=== PATIENT | female | born 1950 | race Caucasian/White ===

== ENCOUNTER → 2023-09-03 13:50 | Outpatient (REF) | payer MEDICARE, SELFPAY | LOC: WDC 13:50 | PROVIDERS: ATTENDING PHYSICIAN Obstetrics & Gynecology; FAMILY PHYSICIAN Internal Medicine | DX: R92.8 Other abnormal and inconclusive findings on diagnostic imaging of breast (principal) | CPT/HCPCS: 76642 ==

== ENCOUNTER → 2023-11-09 07:54 | Outpatient (REF) | payer MEDICARE, SELFPAY ==
--- NOTE | 2023-11-09 13:40 | OID.BR.INTR ---
[facility]ANCED Breast Navigator - Initial
- -
Date of Contact: 11/09/23
Met with patient. Patient given written information on navigator services available at [facility]. Will follow up as needed per protocol.
== END ==
LOC: WDC 07:54
PROVIDERS: ATTENDING PHYSICIAN Surgery
DX: N63.23 Unspecified lump in the left breast, lower outer quadrant (principal)
CPT/HCPCS: 88305; 19083; 77065; A4648

== ENCOUNTER 2023-12-20 15:02 | Emergency (ER) | payer MEDICARE, SELFPAY ==
[2023-12-20 15:09] VITALS: BP 129/80
[2023-12-20 15:27] LABS: % Basophils 0.4 % (0-2); % Eosinophils 2.4 % (0-6); % Immature Granulocytes 0.4 % (0-0.5); % Lymphocytes 21.6 % (20.5-51.1); % Monocytes 5.4 % (1.7-9.3); % Neutrophils 69.8 % (42.2-75.2); Absolute Eosinophils 0.2 10^3/uL (0-0.7); Absolute Monocytes 0.5 10^3/uL (0.1-0.6); Absolute Neutrophils 6.5 10^3/uL (1.4-6.5); Hematocrit 39.9 % (37.0-47.0); Hemoglobin 13.6 g/dL (12.0-16.0); Mean Corp Hgb Conc. 34.1 g/dL (33.0-37.0); Mean Corpuscular Hgb 26.3 pg (27.0-31.0); Mean Platelet Volume 9.5 fL (7.4-10.4); Nucleated Red Blood Cells % 0 %; Platelet Count 352 10^3/uL (130-400); Red Blood Cell Count 5.18 10^6/uL (4.20-5.40); Red Cell Dist. Width 14.4 % (11.5-14.5); White Blood Cell Count 9.4 10^3/uL (4.8-10.8)
[2023-12-20 15:47] LABS: ALT (SGPT) 26 U/L (0-35); AST (SGOT) 26 U/L (14-36); Albumin 4.6 g/dl (3.5-5.0); Alkaline Phosphatase 120 U/L (38-126); Blood Urea Nitrogen 24 mg/dl (7-17); Calcium 9.3 mg/dl (8.4-10.2); Carbon Dioxide 22 mmol/L (22-30); Chloride 105 mmol/L (98-107); Glucose 142 mg/dl (70-99); Potassium 4.2 mmol/L (3.5-5.1); Sodium 137 mmol/L (135-145); Total Bilirubin 0.5 mg/dl (0.2-1.3); Total Protein 7.7 g/dl (6.3-8.2); eGFR > 60.00
[2023-12-20 15:52] LABS: Troponin I < 0.012 ng/ml
[2023-12-20 16:18] VITALS: BP 111/97
[2023-12-20 16:19] LABS: Lipase 328 U/L (23-300)
[2023-12-20 17:00] VITALS: BP 122/81; BMI 25.6
--- NOTE | 2023-12-20 17:54 | ED.GENMED ---
History of Present Illness
General
Chief Complaint: Chest Pain
Source: patient
Exam Limitations: none
Time Seen by Provider: 12/20/23 17:36
History of Present Illness
History of Present Illness:
72-year-old female with history of reflux, hypertension presents with onset of severe sharp pain in the center of her chest that radiates to her neck and her scapula and down her arms. This happened in 3 different episodes earlier today. She was
diaphoretic during this and short of breath. Currently she states the pain is nearly resolved and she is just tired. No fever. No recent travel or surgery. No leg swelling or calf pain. No vomiting. No other complaints at this time
Past History
Past History
ED Past Medical History: Hypercholesterolemia
ED Past Surgical History: and Other (Partial thyroidectomy)
Patient has exhibited threatening behavior?: No
PSI?: No
Social History
Tobacco: Non-smoker
Alcohol: None
Drug: None
Personal:
Living: with family
Employment: Employed
Phy Exam
Physical Exam
Physical Exam:
General: Well-appearing female no acute respiratory distress
HEENT: Normocephalic atraumatic
Heart: Regular rate and rhythm no murmurs
Lungs: Clear no wheeze
Vascular: 2+ symmetric radial pulses bilaterally
Neurologic: Good sensation upper extremities.
Scores
Heart Score for Chest Pain Patients
STEMI patient?: No
History: Slightly or Non-Suspicious
ECG: Normal
Age: >/= 65 years
Risk Factors: 1 or 2 Risk Factors
Troponin: </= Normal Limit
Heart Score for Chest Pain Patients: 3
Heart Score Risk: 2.5% MACE over next 6 weeks
Course
Orders/Labs/Results
Orders:
Orders
12/20/23 15:05
EKG [Electrocardiogram (*1)] Urgent
Reason for Study: Chest Pain
EKG- Treatment ONCE
12/20/23 15:19
CMP [Comprehensive Metabolic Panel] Urgent
Complete Blood Count/With Diff Urgent
Lipase Urgent
Troponin I Urgent
12/20/23 17:51
CT Chest Angio W/wo Iv Contras Urgent
Comment:
Reason For Exam: chest and scapular pain, eval for dissection
12/20/23 17:56
Troponin I Urgent
Abnormal Lab Results
12/20/23
15:19
MCV 77.0 L fL
(81.0-99.0)
MCH 26.3 L pg
(27.0-31.0)
BUN 24 H mg/dl
(7-17)
Glucose 142 H mg/dl
(70-99)
Lipase 328 H U/L
(23-300)
12/20/23 15:19
12/20/23 15:19
Vital Signs
Initial and Last Documented VS:
Initial Vital Signs
Temp Pulse Resp BP Pulse Ox
97.8 F 76 16 129/80 100
12/20/23 15:09 12/20/23 15:09 12/20/23 15:09 12/20/23 15:09 12/20/23 15:09
Last Documented Vital Signs
Temp Pulse Resp BP Pulse Ox
97.8 F 74 17 122/81 99
12/20/23 15:09 12/20/23 17:45 12/20/23 17:45 12/20/23 17:00 12/20/23 17:45
MDM/Problems Addressed
Differential Diagnosis Includes:
Chest pain with scapular plane and arm pain. Patient has a history of reflux. Considers reflux as a source of discomfort however also need to consider dissection given severity of pain. Will check for cardiac events as well with troponin.
Patient's vital signs are currently stable. Her symptoms are improved. CT angio of the chest is pending
*Critical Care Note
Total Time (30-74mins, 75-104mins- exclusive of procedures): Not Applicable
Update Note
Update Note:
CT angio of chest negative for acute finding. Repeat troponin also undetectable. Patient reassured. Do not suspect ACS PE or dissection. Question possible reflux as a source of her discomfort. Recommend she follow-up with family doctor and GI.
Stable for discharge
ED Attending Note
-
Portions of this chart may have been created with voice recognition software.� Occasional wrong word or��sound alike� substitutions may have occurred due to the inherent limitations of voice recognition software.
Discharge Plan
Departure
Patient Disposition: Home (Routine Discharge)
Date of Disposition: 12/20/23
Time of Disposition: :24
Patient with high blood pressure during this ER visit?: No
Discharge Problem:
Chest pain
Instructions: Acid Reflux and GERD in Adults (DC)
Prescriptions:
No Action
No Current Medications
0
Referrals:
Silvestre Kay MD [Family Provider] -
Activity Restrictions/Additional Instructions:
Please return here for worsening symptoms otherwise follow-up with your treating physicians.
Interventions
Interventions:
*Risk Screen - Suicide Last Done: 12/20/23 17:00
*General Assessment Last Done: 12/20/23 15:09
*Neglect/Abuse Screening Last Done: 12/20/23 17:00
ED- Fall Risk Assessment Last Done: 12/20/23 17:00
*ED COVID-19 Vaccine History Last Done: 12/20/23 15:09
ED- Cardiac Assessment Last Done: 12/20/23 17:00
Discharge Date and Time
Print Language: BRITISH
[2023-12-20 18:25] LABS: Troponin I < 0.012 ng/ml
[2023-12-20 19:33] VITALS: BP 127/82
== END 2023-12-20 19:37 | disposition home or self-care (01) ==
LOC: EMR 15:02
PROVIDERS: Emergency Medicine; Physician Assistant; EMERGENCY PHYSICIAN Emergency Medicine; FAMILY PHYSICIAN Family Medicine
DX: R07.89 Other chest pain (principal); M54.2 Cervicalgia; R06.02 Shortness of breath; R53.83 Other fatigue; M25.519 Pain in unspecified shoulder; I10 Essential (primary) hypertension; E78.00 Pure hypercholesterolemia, unspecified; E89.0 Postprocedural hypothyroidism; K21.9 Gastro-esophageal reflux disease without esophagitis; Z88.8 Allergy status to other drugs, medicaments and biological substances; Z88.1 Allergy status to other antibiotic agents; Z91.040 Latex allergy status
CPT/HCPCS: 99285; 71275; 80053; 83690; 84484; 85025; 93005; Q9967

== ENCOUNTER → 2024-01-05 09:16 | Outpatient (REF) | payer MEDICARE, SELFPAY | LOC: RAD 09:16 | PROVIDERS: ATTENDING PHYSICIAN Family Medicine | DX: R07.89 Other chest pain (principal); K21.9 Gastro-esophageal reflux disease without esophagitis | CPT/HCPCS: 74176 ==

== ENCOUNTER → 2024-01-07 10:15 | Outpatient (REF) | payer MEDICARE, SELFPAY | LOC: RAD 10:15 | PROVIDERS: ATTENDING PHYSICIAN Internal Medicine; FAMILY PHYSICIAN Family Medicine; REFERRING PHYSICIAN Internal Medicine Gastroenterology | DX: K44.9 Diaphragmatic hernia without obstruction or gangrene (principal) | CPT/HCPCS: 74221 ==

== ENCOUNTER → 2024-01-25 08:08 | Outpatient (REF) | payer MEDICARE, SELFPAY | LOC: WDC 08:08 | PROVIDERS: ATTENDING PHYSICIAN Surgery | DX: N63.20 Unspecified lump in the left breast, unspecified quadrant (principal); N63.24 Unspecified lump in the left breast, lower inner quadrant | CPT/HCPCS: 19285; 77065; A4648 ==

== ENCOUNTER → 2024-01-28 07:30 | Outpatient (REF) | payer MEDICARE, SELFPAY | LOC: WDC 07:30 | PROVIDERS: ATTENDING PHYSICIAN Surgery | DX: N63.20 Unspecified lump in the left breast, unspecified quadrant (principal) | CPT/HCPCS: 88305; 88307; 76098 ==

== ENCOUNTER 2024-01-29 00:18 | Observation (INO) | payer MEDICARE, SELFPAY ==
[2024-01-28 20:22] VITALS: BMI 25.1
[2024-01-28 20:25] VITALS: BP 129/86
[2024-01-28 20:27] VITALS: BP 129/86
[2024-01-28 20:56] LABS: % Basophils 0.1 % (0-2); % Immature Granulocytes 0.6 % (0-0.5); % Lymphocytes 4.8 % (20.5-51.1); % Monocytes 3.9 % (1.7-9.3); % Neutrophils 90.6 % (42.2-75.2); Absolute Immature Granulocytes 0.1 10^3/uL (0-0.05); Absolute Lymphocytes 0.9 10^3/uL (1.2-3.4); Absolute Monocytes 0.7 10^3/uL (0.1-0.6); Absolute Neutrophils 16.5 10^3/uL (1.4-6.5); Hematocrit 36.9 % (37.0-47.0); Hemoglobin 12.4 g/dL (12.0-16.0); Mean Corp Hgb Conc. 33.6 g/dL (33.0-37.0); Mean Corpuscular Hgb 26.4 pg (27.0-31.0); Mean Corpuscular Volume 78.7 fL (81.0-99.0); Mean Platelet Volume 9.7 fL (7.4-10.4); Nucleated Red Blood Cells % 0 %; Platelet Count 300 10^3/uL (130-400); Red Blood Cell Count 4.69 10^6/uL (4.20-5.40); Red Cell Dist. Width 15.4 % (11.5-14.5); White Blood Cell Count 18.2 10^3/uL (4.8-10.8)
[2024-01-28 21:00] VITALS: BP 112/65
[2024-01-28 21:10] LABS: ALT (SGPT) 21 U/L (0-35); AST (SGOT) 27 U/L (14-36); Alkaline Phosphatase 95 U/L (38-126); Blood Urea Nitrogen 14 mg/dl (7-17); Calcium 8.9 mg/dl (8.4-10.2); Carbon Dioxide 17 mmol/L (22-30); Chloride 116 mmol/L (98-107); Estimated Creatinine Clearance 45 ml/min; Glucose 139 mg/dl (70-99); Potassium 4.4 mmol/L (3.5-5.1); Sodium 144 mmol/L (135-145); Total Bilirubin 0.4 mg/dl (0.2-1.3); Total Protein 6.7 g/dl (6.3-8.2); eGFR > 60.00
[2024-01-28 21:14] LABS: Creatine Phosphokinase 258 U/L (30-135)
--- NOTE | 2024-01-28 21:14 | ED.GENMED ---
History of Present Illness
<Vicky Gutierrez MD, Resident - Last Filed: 01/28/24 21:20>
General
Chief Complaint: Dizziness
Time Seen by Provider: 01/28/24 20:45
History of Present Illness
History of Present Illness:
73 year old female who was admitted to ER today after she had a face /neck lifting surgery this morning due feeling dizzy and nauseous. The patient has a PMH of HT, HL, ADRIENNE. The patient is awake and alert and no any neurologic deficits on her
examination. Patient reports that she had many surgeries in the past and she does not tolerate anesthesia medications well. She endorses having more dizziness/nausea when she turns her neck. The patient denies chest pain and shortness of breath.
Past History
<Vicky Gutierrez MD, Resident - Last Filed: 01/28/24 21:20>
Past History
ED Past Medical History: Hypercholesterolemia
ED Past Surgical History: and Other (Partial thyroidectomy)
Patient has exhibited threatening behavior?: No
PSI?: No
Social History
Tobacco: Non-smoker
Alcohol: None
Drug: None
Personal:
Living: with family
Employment: Employed
Phy Exam
<Vicky Gutierrez MD, Resident - Last Filed: 01/28/24 21:20>
General Physical Exam
General Presentation: well appearing and moderate distress
General Skin: warm and dry
General Mental: alert
General Hydration: appears well hydrated
ENT Exam
Additional ENT: The patient has bandages around her neck due her face/neck lifting surgery.
Eye Exam
Eye Exam: EOMI and conjunctiva normal
Cardiovascular Exam
Cardiovascular Exam: regular rate/rhythm, no edema, no gallop and no murmur
Pulmonary Exam
Pulmonary Exam: lungs clear, no respiratory distress, no rales, no crackles, no rhonchi, no wheezing and no cough
Gastrointestinal Exam
Gastrointestinal Exam: soft
Course
<Vicky Gutierrez MD, Resident - Last Filed: 01/28/24 21:20>
Orders/Labs/Results
Orders:
Orders
01/28/24 20:26
Electrocardiogram (*1) Urgent
Reason for Study: Vertigo / Dizzy
EKG- Treatment ONCE
01/28/24 20:40
CMP [Comprehensive Metabolic Panel] Urgent
Complete Blood Count/With Diff Urgent
Creatine Phosphokinase Urgent
Comment: ADD ON
01/28/24 20:58
Add On- LAB Urgent
Tests Added?: cpk
01/28/24 21:13
Ondansetron Injectable [Zofran] 4 mg IV NOW STA
01/28/24 22:15
0.9% Sodium Chloride 1000 ml [Nss] 1,000 ml IV 100 mls/hr
Abnormal Lab Results
01/28/24
20:40
WBC 18.2 H 10^3/uL
(4.8-10.8)
Hct 36.9 L %
(37.0-47.0)
MCV 78.7 L fL
(81.0-99.0)
MCH 26.4 L pg
(27.0-31.0)
RDW 15.4 H %
(11.5-14.5)
Abs Immat Gran (auto) 0.1 H 10^3/uL
(0-0.05)
Absolute Neuts (auto) 16.5 H 10^3/uL
(1.4-6.5)
Absolute Lymphs (auto) 0.9 L 10^3/uL
(1.2-3.4)
Absolute Monos (auto) 0.7 H 10^3/uL
(0.1-0.6)
Immature Gran % 0.6 H %
(0-0.5)
Neutrophils % 90.6 H %
(42.2-75.2)
Lymphocytes % 4.8 L %
(20.5-51.1)
Chloride 116 H mmol/L
(98-107)
Carbon Dioxide 17 L mmol/L
(22-30)
Glucose 139 H mg/dl
(70-99)
Creatine Kinase 258 H U/L
(30-135)
01/28/24 20:40
01/28/24 20:40
Vital Signs
Initial and Last Documented VS:
Initial Vital Signs
Pulse Resp
91 32
01/28/24 20:23 01/28/24 20:23
Last Documented Vital Signs
Temp Pulse Resp BP Pulse Ox
98.1 F 89 14 112/65 99
01/28/24 20:27 01/28/24 21:00 01/28/24 21:00 01/28/24 21:00 01/28/24 20:27
<Edmond Hall, DO - Last Filed: 01/28/24 22:22>
Orders/Labs/Results
Orders:
Orders
01/28/24 20:26
Electrocardiogram (*1) Urgent
Reason for Study: Vertigo / Dizzy
EKG- Treatment ONCE
01/28/24 20:40
CMP [Comprehensive Metabolic Panel] Urgent
Complete Blood Count/With Diff Urgent
Creatine Phosphokinase Urgent
Comment: ADD ON
01/28/24 20:58
Add On- LAB Urgent
Tests Added?: cpk
01/28/24 21:13
Ondansetron Injectable [Zofran] 4 mg IV NOW STA
01/28/24 22:15
0.9% Sodium Chloride 1000 ml [Nss] 1,000 ml IV 100 mls/hr
Abnormal Lab Results
01/28/24
20:40
WBC 18.2 H 10^3/uL
(4.8-10.8)
Hct 36.9 L %
(37.0-47.0)
MCV 78.7 L fL
(81.0-99.0)
MCH 26.4 L pg
(27.0-31.0)
RDW 15.4 H %
(11.5-14.5)
Abs Immat Gran (auto) 0.1 H 10^3/uL
(0-0.05)
Absolute Neuts (auto) 16.5 H 10^3/uL
(1.4-6.5)
Absolute Lymphs (auto) 0.9 L 10^3/uL
(1.2-3.4)
Absolute Monos (auto) 0.7 H 10^3/uL
(0.1-0.6)
Immature Gran % 0.6 H %
(0-0.5)
Neutrophils % 90.6 H %
(42.2-75.2)
Lymphocytes % 4.8 L %
(20.5-51.1)
Chloride 116 H mmol/L
(98-107)
Carbon Dioxide 17 L mmol/L
(22-30)
Glucose 139 H mg/dl
(70-99)
Creatine Kinase 258 H U/L
(30-135)
01/28/24 20:40
01/28/24 20:40
Vital Signs
Initial and Last Documented VS:
Initial Vital Signs
Pulse Resp
91 32
01/28/24 20:23 01/28/24 20:23
Last Documented Vital Signs
Temp Pulse Resp BP Pulse Ox
98.1 F 89 14 112/65 99
01/28/24 20:27 01/28/24 21:00 01/28/24 21:00 01/28/24 21:00 01/28/24 20:27
<Edmond Hall DO - Last Filed: 01/28/24 22:22>
MDM/Problems Addressed
Differential Diagnosis Includes:
Effects of anesthesia, electrolyte abnormality, deconditioning no chest pain or shortness of breath no arrhythmias
MDM/Problems Addressed:
Weakness dizzy
Chronic conditions affecting care: HTN
Acute Exacerbation and/or Progression of Chronic Illness: HTN
<Edmond Hall DO - Last Filed: 01/28/24 22:22>
*Pulse Oximetry
Patient hypoxic: no
*EKG
Interpreted by ED Provider?: Yes
Interpretation: abnormal
Comparison EKG: no comparison EKG present
Heart Rate: 78
Rhythm: sinus
Ischemia: non-specific ST changes
*Broadcast Checker Interpretation
Rate: normal
Interpretation: normal
Heart Rate: 78
Rhythm: sinus
*Critical Care Note
Total Time (30-74mins, 75-104mins- exclusive of procedures): Not Applicable
<Edmond Hall DO - Last Filed: 01/28/24 22:22>
Update Note
Update Note:
Update, reviewed with RN patient have a hard time ambulating, she apparently lives alone, I did speak with the treating surgeon, will ask hospitalist to admit, he will see her in the morning
ED Attending Note
<Vicky Gutierrez MD, Resident - Last Filed: 01/28/24 21:20>
-
Portions of this chart may have been created with voice recognition software.� Occasional wrong word or��sound alike� substitutions may have occurred due to the inherent limitations of voice recognition software.
<Edmond Hall DO - Last Filed: 01/28/24 22:22>
ED Attending Note
Patient seen and examined by attending physician: Yes
I performed a history and physical exam of patient and discussed management with resident, I reviewed resident's note and agree with documented findings and plan of care.: Yes
ED Attending Note:
73-year-old female status post cosmetic surgery apparently had a prolonged or time recovery room surgery center felt dizzy trouble walking she suffers from vertigo chronically, here she is awake alert and oriented stable vital signs, apparently
received 5 L of saline during the surgery, will give a dose of Zofran here keep on monitoring tech see how she is feeling, will reach out to her treating surgeon
Discharge Plan
Departure
Prescriptions:
No Action
lorazepam 0.5 mg Tablet
0.5 mg PO DAILY PRN (Reason: anxiety)
zolpidem [Ambien] 5 mg Tablet
5 mg PO HS
losartan 100 mg Tablet
100 mg PO DAILY
Prozac
spironolactone
Referrals:
Sivlestre Kay MD [Family Provider] -
Interventions
Interventions:
*Risk Screen - Suicide Last Done: 01/28/24 20:27
*General Assessment Last Done: 01/28/24 20:27
*Neglect/Abuse Screening Last Done: 01/28/24 20:27
ED- Fall Risk Assessment Last Done: 01/28/24 20:50
*ED COVID-19 Vaccine History Last Done: 01/28/24 20:27
ED- Neurological Assessment Last Done: 01/28/24 20:50
ED- Cardiac Assessment Last Done: 01/28/24 20:50
ED Swallowing Screen Last Done: 01/28/24 20:50
Discharge Date and Time
Print Language: GHANAIAN
[2024-01-28] MEDS: ZOFRAN 4 MG IV (21:31)
[2024-01-28 22:01] VITALS: BP 134/84
[2024-01-28] MEDS: NSS 1000 IV (22:26)
[2024-01-28 23:00] VITALS: BP 130/83
[2024-01-29] VITALS (13 sets, daily range): BP systolic 116–153; BP diastolic 71–86; PULSE 70–78; BMI 24.9
--- NOTE | 2024-01-29 00:23 | HPS.HSE ---
Family Physician
-
Family Physician: Silvestre Kay
Chief Complaint
-
Dizziness
History of Present Illness
Patient is a 73y F with PMH significant for hypertension who presents to ED from [facility] for evaluation of lethargy and dizziness post-op. Patient underwent cosmetic surgery today with Drs. Singh / Nicho. Following the roughly 8 hour
procedure, patient states that she had some difficulty waking from anesthesia. She also noted some dizziness that occurred with turning of the head. She had no N/V. No chest pain or dyspnea.
Patient was transported to ED for further evaluation. Here in the ED, patient is awake but very weak and unable to stand unassisted. She denies any further dizziness. No other new symptoms / complaints. She feels very fatigued.
Patient states that anesthesia typically 'hits me hard' and she frequently has similar issues post-procedure.
Medical History
Past Medical History
Past Medical History: Reports Other
Additional Past Medical History:
Hypertension
Migraine Headaches
Anxiety / Depression / Insomnia
Past Surgical History: Reports Other
Additional Past Surgical History:
Left Lumpectomy / Bilateral Breast Reduction and Lift / Face Lift (01/28/24)
Bilateral Blepharoplasty
Abdominoplasty / Liposuction
Partial Thyroidectomy (benign mass)
Social History
Tobacco: Non-smoker
Alcohol: None
Drug: None
Family History
Family History: Not pertinent
Allergies / Home Medications
Allergies reflects when Allergies were last updated in [employer].
Home Medications with original date entered in [employer]
Allergy/Medication List:
Allergies
Allergy/AdvReac Type Severity Reaction Status Date / Time
diphenhydramine Allergy Unknown Verified 01/28/24 20:24
[From Benadryl]
hydrochlorothiazide Allergy fainting Verified 01/28/24 20:24
latex Allergy Unknown Verified 01/28/24 20:24
Tetracyclines Allergy Unknown Verified 01/28/24 20:24
Home Medications
lorazepam 0.5 mg tablet 0.5 mg PO DAILY PRN anxiety 01/28/24
losartan 100 mg tablet 100 mg PO DAILY 01/28/24
zolpidem 5 mg tablet (Ambien) 5 mg PO HS 01/28/24
minoxidil 2.5 mg tablet 2.5 mg PO DAILY 01/29/24
omeprazole 40 mg capsule,delayed release 40 mg PO DAILY 01/29/24
sertraline 50 mg tablet 50 mg PO DAILY 01/29/24
trazodone 50 mg tablet 50 mg PO HS 01/29/24
Review of Systems
-
History Source: Patient
A 12 point ROS was completed and negative except as noted: Yes
Constitutional: Reports Fatigue; Denies Fever or Chills
Respiratory: Denies Cough or Trouble Breathing
Cardiac: Denies Chest Pain or Palpitations
Abdomen/GI: Denies Abdominal Pain, Nausea, Vomiting or Diarrhea
: Denies Dysuria or Frequency
Musculoskeletal: Denies Joint Pain or Edema
Neurological: Reports Dizzy, Headache and Weakness
Psych: Denies Depression or Anxiety
Physical Exam
Vital Signs
Vital Signs
Temp Pulse Resp BP Pulse Ox
98.1 F 89 18 131/81 98
01/28/24 20:27 01/29/24 00:00 01/29/24 00:00 01/29/24 00:00 01/29/24 00:00
Physical Exam
General: Other (73y F in no acute distress.)
HEENT: Other (Bulky dressing in place around the head with R sided ASIM in place with scant amount of serosanguinous drainage.)
Respiratory: Other (Decreased bilaterally - otherwise clear. Large binder / supportive garment in place over the breasts. No drains.)
Cardiac: S1/S2 and Regular Rhythm; No Murmur
GI: Soft, Non Tender, Non Distended and Normal Bowel Sounds
Musculoskeletal: No Clubbing, No Cyanosis and No Edema
Neuro: AO x 3
Laboratory Results
-
01/28/24 20:40
01/28/24 20:40
Laboratory Results
Total Bilirubin 0.4 mg/dl (0.2-1.3) 01/28/24 20:40
AST 27 U/L (14-36) 01/28/24 20:40
ALT 21 U/L (0-35) 01/28/24 20:40
Alkaline Phosphatase 95 U/L (38-126) 01/28/24 20:40
Impression/Plan
-
A/P: Patient is a 73y F with PMH significant for HTN who presents to ED complaining of fatigue and dizziness s/p cosmetic surgery this AM.
Fatigue / Dizziness
- Observe overnight for further evaluation.
- Very likely secondary to anesthesia effect from today's procedure(s).
- Monitor on tele overnight with gentle IVFs.
- Avoid sedating meds as able.
- PT / OT evaluations in the AM.
s/p L Lumpectomy, Bilateral Breast Reduction and Lift, Face Lift
- Dr. Torre has been consulted and will eval in the AM.
- Can follow-up with Dr. Singh as an outpatient - unless specific / new issues arise.
Benign Hypertension
- Continue losartan with holding parameters to avoid hypotension.
- Hold minoxidil acutely.
Anxiety / Depression / Insomnia
- Stable. Continue sertraline.
- Hold sleep aides acutely given complaints of fatigue.
DVT Prophylaxis: SCDs
Code Status: Full
--- NOTE | 2024-01-29 02:30 | PTCARENOTE ---
received patient from the ED. AAOx3. Sr on tele 70s. c/o posterior neck pain-requested Tylenol. denies any dizziness at this time. surgical dressings intact. JPx1-serous sanguinous drainage. reviewed plan of care with patient and verbalized
understanding. call carcamo within reach.
[2024-01-29] MEDS: TYLENOL 650 MG PO ×4 (02:48→18:18)
[2024-01-29 06:38] LABS: Hematocrit 34.7 % (37.0-47.0); Hemoglobin 11.7 g/dL (12.0-16.0); Mean Corp Hgb Conc. 33.7 g/dL (33.0-37.0); Mean Corpuscular Hgb 26.4 pg (27.0-31.0); Mean Corpuscular Volume 78.2 fL (81.0-99.0); Mean Platelet Volume 9.8 fL (7.4-10.4); Platelet Count 295 10^3/uL (130-400); Red Blood Cell Count 4.44 10^6/uL (4.20-5.40); Red Cell Dist. Width 15.4 % (11.5-14.5); White Blood Cell Count 16.3 10^3/uL (4.8-10.8)
[2024-01-29 06:49] LABS: Blood Urea Nitrogen 13 mg/dl (7-17); Calcium 9.1 mg/dl (8.4-10.2); Carbon Dioxide 22 mmol/L (22-30); Chloride 112 mmol/L (98-107); Estimated Creatinine Clearance 37 ml/min; Glucose 101 mg/dl (70-99); Potassium 3.6 mmol/L (3.5-5.1); Sodium 142 mmol/L (135-145); eGFR 53.72
[2024-01-29 07:37] LABS: Hepatitis C Antibody Negative (Negative)
[2024-01-29] MEDS: PROTONIX 40 MG PO (07:44)
[2024-01-29] MEDS: COZAAR 100 MG PO (07:44)
--- NOTE | 2024-01-29 12:28 | CM ---
spoke to pt in room, she is prev indep, lives alone in a 2 story home with 2 steps to enter. she denies any dc planning needs or dme's. plan is for dc to home when medically stable. obs letter explained and signed.
--- NOTE | 2024-01-29 12:36 | W.PN.UPDATE ---
Addendum entered and electronically signed by Adelso Justice MD 01/29/24 18:24:
Discussed case with plastic surgeon Dr. Torre. Patient okay for discharge from surgical perspective. Patient was eval by PT and OT. Patient no longer dizzy. Patient be discharged home. Recommended outpatient blood work to monitor creatinine and
WBC.
More than 30 minutes spent in discharge including
Final examination of the patient
Summarizing hospital stay
Instructions for continuing care to all relevant caregivers
Preparation of discharge records, prescriptions, and referral forms
Total time spent (in minutes): 50
Original Note:
Update Note
Progress Note Update
Seen and examined independent of overnight physician. States feeling tired. Denies any lightheaded or dizziness. States wants to work with PT. Planning to drink water and eating breakfast awaiting to see her primary plastic surgeon. Not in much
pain.
General: Other (73y F in no acute distress.)
HEENT: Other (Bulky dressing in place around the head with R sided ASIM in place with scant amount of serosanguinous drainage.)
Respiratory: Other (Decreased bilaterally - otherwise clear. Large binder / supportive garment in place over the breasts. No drains.)
Cardiac: S1/S2 and Regular Rhythm; No Murmur
GI: Soft, Non Tender, Non Distended and Normal Bowel Sounds
Musculoskeletal: No Clubbing, No Cyanosis and No Edema
Neuro: AO x 3
A/P: Patient is a 73y F with PMH significant for HTN who presents to ED complaining of fatigue and dizziness s/p cosmetic surgery this AM.
Fatigue / Dizziness
- Very likely secondary to anesthesia effect from prolonged 8h procedure(s).
- Avoid sedating meds as able.
- PT / OT evaluations pending
s/p L Lumpectomy, Bilateral Breast Reduction and Lift, Face Lift
- Dr. Torre has been consulted -eval pending as with ASIM drain-will defer management to them
- Can follow-up with Dr. Singh as an outpatient
Benign Hypertension
- Continue losartan with holding parameters to avoid hypotension.
- Hold minoxidil acutely.
Anxiety / Depression / Insomnia
- Stable. Continue sertraline.
- Hold sleep aides acutely given complaints of fatigue.
Elevated Creatinine likely 2/2 pre-renal stimulus and prolonged anesthesia
-
Leukocytosis likely secondary to postop stress reaction
-Remains afebrile. Downtrending.
DVT Prophylaxis: SCDs
Code Status: Full
Dispo-pending Dr. Torre evaluation and PT and OT
--- NOTE | 2024-01-29 18:18 | W.PN.PLAS ---
Progress Note
Subjective Data
Pt feels better. Pain controlled with Tylenol. OOb to chair. No longer dizzy.
Subjective: Pain Level and Ambulatory
Objective Data
Vital Signs
Temp Pulse Resp BP Pulse Ox
98.5 F 73 16 147/84 98
01/29/24 16:08 01/29/24 16:06 01/29/24 16:08 01/29/24 16:06 01/29/24 11:15
Intake and Output
01/28/24 01/29/24 01/30/24
06:59 06:59 06:59
Intake Total 500 / 500
Output Total 400 / 400
Balance 100 / 100
Intake:
Oral fluids 300 / 300
IV fluids (Total) 200 / 200
nss 200 / 200
Output:
Urine, Voided 400 / 400
Other:
Number of approximated MODERATE 2
amounts of urine
Lab Results
01/29/24 05:59
01/29/24 05:59
Physical Exam
Wound:
Incisions CDI. Flaps pink and viable. Nipples pink. Drain D/cd
Surgical Site: Erythema: No and Hematoma: No
Nipple Color: Good Capillary Refill
Assessment / Plan
Patient continues to improve. Doing well. Patient anxious to go.
Patient is stable. discharge to home once patient is able to ambulate, void, tolerate a PO diet and pain is adequately controlled.
Visiting Nurse care not ordered.
Wound care discussed with patient.
Follow up within 6 days.
Patient given any appropriate scripts at office pre op visit.
--- NOTE | 2024-01-29 18:24 | W.DCSUMMARY ---
Discharge Summary
Discharge Data
Date of Admission: 01/29/24
Date of Discharge: 01/29/24
-
Pending Results: No
Hospital Course
73 yo female past medical history of hypertension primary, migraine, anxiety, depression, insomnia, who is presenting from surgical center after undergoing prolonged 8-hour procedure of left lumpectomy, bilateral breast reduction and left and trace
left and post procedure patient was feeling dizzy and complaining of ambulatory dysfunction. Patient was transferred to the ER by EMS. Patient underwent blood work. WBC was downtrending. Sedating medications were held. Patient was eval by PT
and OT and no additional need was recommended.. Patient received IV fluid. Patient was tolerating diet and was trying to increase her p.o. intake and thus IV fluid was discontinued. Patient said her fatigue and dizziness resolved. Patient was
eval by plastic surgery and no further inpatient management warranted. Patient with mild elevated creatinine as a result recommend to hold losartan acutely for additional 24 hours and then recommended repeat blood work with primary doctor to
monitor creatinine level.
Discharge Plan
-
Patient Disposition: Home with Home Care
Discharge Diagnosis/Procedures: Fatigue and dizziness likely secondary to prolonged anesthesia from surgical procedure
Elevated creatinine likely secondary prerenal stimulus and prolonged anesthesia
Leukocytosis likely secondary to postop stress reaction
Condition: Fair
Diet: Regular
Activity: With assistance and As tolerated
Driving Restrictions: Not until seen by your Dr
Blood Work: CBC and BMP in 2-3 days with primary doctor.
Other Services: VN and PT
Referrals:
Antionette Singh MD [Active] - None
Blade Torre DO [Active] - None
Silvestre Kay MD [Family Provider] - in less than 1 week
Prescriptions:
New
acetaminophen 325 mg Tablet
650 mg PO Q4HPRN PRN (Reason: Mild Pain / Temp > 101) 10 Days Qty: 20 0RF
Continued
lorazepam 0.5 mg Tablet
0.5 mg PO DAILY PRN (Reason: anxiety)
trazodone 50 mg Tablet
50 mg PO HS
omeprazole 40 mg Capsule,Delayed Release(Dr/Ec)
40 mg PO DAILY
minoxidil 2.5 mg Tablet
2.5 mg PO DAILY
sertraline 50 mg Tablet
50 mg PO DAILY
Held
zolpidem [Ambien] 5 mg Tablet
5 mg PO HS
Hold Instructions: Resume on 02/02/24.
losartan 100 mg Tablet
100 mg PO DAILY
Hold Instructions: Resume on 01/31/24.
Discharge Orders:
Discharge Patient (As Directed); Ordered 01/29/24
Ordered By: Adelso Justice
Care Plan Goals
Care Plan Goals:
Problem: Readiness for enhanced knowledge related to diagnosis and treatment plan
Goal: Understand your diagnosis and treatment plan needs, including medications if applicable.
Instructions: Know your diagnosis, underlying causes and treatment plan options, including medications if applicable. Consult with your health care team to learn about your diagnosis and treatment plan, including medications if applicable.
Discharge Date and Time
Print Language: ALBANIAN
--- NOTE | 2024-01-29 18:38 | PTCARENOTE ---
Pt received this am stating she had no further dizziness or lightheadedness. Pt oob ad laura in the room. Surgical bra intact. ASIM drain draining sanguineous drainage. [address] Torre in this evening and removed ASIM drain and applied dry dressing
and chin strap dressing.
--- NOTE | 2024-01-29 21:41 | PTCARENOTE ---
Pt d/c around 1999. Pt belongings w/ pt. IV removed. Discharge instructions reviewed w/ pt. Pt states no questions.
== END 2024-01-29 20:00 | disposition home or self-care (01) ==
LOC: IVU 00:18
PROVIDERS: ADMITTING PHYSICIAN Hospitalist; ATTENDING PHYSICIAN Hospitalist; EMERGENCY PHYSICIAN Emergency Medicine; FAMILY PHYSICIAN Family Medicine
DX: R42 Dizziness and giddiness (principal); R53.83 Other fatigue; R11.0 Nausea; R53.1 Weakness; R79.89 Other specified abnormal findings of blood chemistry; D72.829 Elevated white blood cell count, unspecified; K21.9 Gastro-esophageal reflux disease without esophagitis; E78.00 Pure hypercholesterolemia, unspecified; I44.4 Left anterior fascicular block; R26.2 Difficulty in walking, not elsewhere classified; I10 Essential (primary) hypertension; F41.9 Anxiety disorder, unspecified; F32.A Depression, unspecified; G47.00 Insomnia, unspecified; G43.909 Migraine, unspecified, not intractable, without status migrainosus; Z91.040 Latex allergy status; Z88.1 Allergy status to other antibiotic agents; Z88.8 Allergy status to other drugs, medicaments and biological substances
CPT/HCPCS: 80048; 80053; 82550; 85025; 85027; 86803; 87070; 93005; 96361; 96374; 97163; 97165; 99285; G0378

== ENCOUNTER → 2024-06-13 13:09 | Outpatient (REF) | payer MEDICARE, SELFPAY | LOC: WDC 13:09 | PROVIDERS: ATTENDING PHYSICIAN Obstetrics & Gynecology; FAMILY PHYSICIAN Family Medicine; REFERRING PHYSICIAN Internal Medicine Critical Care Medicine | DX: Z12.31 Encounter for screening mammogram for malignant neoplasm of breast (principal); R06.02 Shortness of breath; R05.1 Acute cough | CPT/HCPCS: 71046 ==

== ENCOUNTER → 2024-06-19 10:03 | Outpatient (REF) | payer MEDICARE, SELFPAY | LOC: WDC 10:03 | PROVIDERS: ATTENDING PHYSICIAN Obstetrics & Gynecology; FAMILY PHYSICIAN Family Medicine | DX: R92.8 Other abnormal and inconclusive findings on diagnostic imaging of breast (principal) | CPT/HCPCS: 76642 ==

== ENCOUNTER 2024-08-29 10:34 | Emergency (ER) | payer MEDICARE, SELFPAY ==
[2024-08-29 10:44] VITALS: BP 140/89
[2024-08-29 12:34] VITALS: BMI 24.7
[2024-08-29 12:47] LABS: % Basophils 0.3 % (0-2); % Eosinophils 2.6 % (0-6); % Immature Granulocytes 0.3 % (0-0.5); % Lymphocytes 17.5 % (20.5-51.1); % Monocytes 5.8 % (1.7-9.3); % Neutrophils 73.5 % (42.2-75.2); Absolute Eosinophils 0.2 10^3/uL (0-0.7); Absolute Lymphocytes 1.6 10^3/uL (1.2-3.4); Absolute Monocytes 0.5 10^3/uL (0.1-0.6); Absolute Neutrophils 6.7 10^3/uL (1.4-6.5); Hematocrit 40.9 % (37.0-47.0); Hemoglobin 13.4 g/dL (12.0-16.0); Mean Corp Hgb Conc. 32.8 g/dL (33.0-37.0); Mean Corpuscular Hgb 26.9 pg (27.0-31.0); Mean Platelet Volume 9.6 fL (7.4-10.4); Nucleated Red Blood Cells % 0 %; Platelet Count 322 10^3/uL (130-400); Red Blood Cell Count 4.99 10^6/uL (4.20-5.40); Red Cell Dist. Width 15.2 % (11.5-14.5); White Blood Cell Count 9.1 10^3/uL (4.8-10.8)
[2024-08-29 13:04] LABS: ALT (SGPT) 23 U/L (0-35); AST (SGOT) 22 U/L (14-36); Albumin 4.2 g/dl (3.5-5.0); Alkaline Phosphatase 81 U/L (38-126); Blood Urea Nitrogen 29 mg/dl (7-17); Calcium 9.5 mg/dl (8.4-10.2); Carbon Dioxide 22 mmol/L (22-30); Chloride 107 mmol/L (98-107); Estimated Creatinine Clearance 41 ml/min; Glucose 101 mg/dl (70-99); Potassium 4.2 mmol/L (3.5-5.1); Sodium 139 mmol/L (135-145); Total Bilirubin 0.6 mg/dl (0.2-1.3); Total Protein 7.2 g/dl (6.3-8.2); eGFR > 60.00
[2024-08-29 13:12] VITALS: BP 128/80
[2024-08-29 13:15] LABS: Troponin I < 0.012 ng/ml
--- NOTE | 2024-08-29 13:18 | ED.GENMED ---
History of Present Illness
General
Chief Complaint: Chest Pain
Source: patient
Exam Limitations: none
Time Seen by Provider: 08/29/24 12:05
Nursing documentation reviewed up to this point in time: agreed with
History of Present Illness
History of Present Illness:
73 yo female w h/o HTN, HLD, GERD, chronic 'stomach issues,' anxiety, PTSD presents for chest pain that started at 10 AM while she was living with her cousin. She states it was a short fleeting pain lasting 1 or 2 seconds. It was in the left upper
chest area. She states she has had dull off-and-on pains in the same area sometimes lasting minutes since then. About 15 minutes after the initial sharp fleeting pain she did feel short of breath and has felt nauseous off and on since, no
vomiting.
Last week spoke with PCP and upped her Prozac from 40 mg to 60 mg. Denies diaphoresis, lightheadedness, radiation of pain.
Past History
Past History
ED Past Medical History: Hypercholesterolemia
ED Past Surgical History: and Other (Partial thyroidectomy)
Patient has exhibited threatening behavior?: No
PSI?: No
Social History
Tobacco: Non-smoker
Alcohol: None
Drug: None
Personal:
Living: with family
Employment: Employed
Review of Systems
Review of Systems
Allergies reviewed?: Yes
All Other Systems: ROS reviewed and negative except as documented in HPI and ROS
Constitutional: Denies fever, fatigue or chills
EENT: Denies sore throat
Respiratory: Denies cough or trouble breathing
Cardiac: Reports chest pain; Denies diaphoresis, palpitations or syncope
ABD/GI: Reports nausea; Denies abdominal pain, vomiting, diarrhea or anorexia
: Denies dysuria, frequency or difficulty voiding
Musculoskeletal: Reports no symptoms
Skin: Reports no symptoms
Neurological: Reports no symptoms
Phy Exam
Physical Exam
Physical Exam:
GENERAL: No acute distress. A&Ox3.
CONSTITUTIONAL: Afebrile.
EYES: clear, conjunctivae normal
ENMT: moist mucus membranes
RESPIRATORY: Regular respirations, nonlabored, lungs clear.
CARDIOVASCULAR: Regular rate and rhythm, no murmurs, no rubs.
GI: Soft, nontender, normal BS
MUSCULOSKELETAL: Moves with ease. Well perfused.
SKIN: Warm, dry, pink
PSYCH: Normal mood and affect. Well kept, interactive and appropriate
NEUROLOGIC: Awake, alert and oriented. No focal neurological deficits
Scores
Heart Score for Chest Pain Patients
STEMI patient?: Not applicable
Course
Orders/Labs/Results
Orders:
Orders
08/29/24 10:36
Electrocardiogram (*1) Urgent
Reason for Study: Chest Pain
EKG- Treatment ONCE
08/29/24 12:37
Complete Blood Count/With Diff Urgent
Comprehensive Metabolic Panel Urgent
Troponin I Urgent
08/29/24 15:28
Troponin I Urgent
Abnormal Lab Results
08/29/24
12:37
MCH 26.9 L pg
(27.0-31.0)
MCHC 32.8 L g/dL
(33.0-37.0)
RDW 15.2 H %
(11.5-14.5)
Absolute Neuts (auto) 6.7 H 10^3/uL
(1.4-6.5)
Lymphocytes % 17.5 L %
(20.5-51.1)
BUN 29 H mg/dl
(7-17)
Glucose 101 H mg/dl
(70-99)
08/29/24 12:37
08/29/24 12:37
Vital Signs
Initial and Last Documented VS:
Initial Vital Signs
Temp Pulse Resp BP Pulse Ox
97.6 F 67 16 140/89 99
08/29/24 10:44 08/29/24 10:44 08/29/24 10:44 08/29/24 10:44 08/29/24 10:44
Last Documented Vital Signs
Temp Pulse Resp BP Pulse Ox
97.6 F 67 16 140/89 99
08/29/24 10:44 08/29/24 10:44 08/29/24 10:44 08/29/24 10:44 08/29/24 10:44
MDM/Problems Addressed
Differential Diagnosis Includes:
ACS, GERD, musculoskeletal pain.
MDM/Problems Addressed:
73 yo female w h/o HTN, HLD, GERD, chronic 'stomach issues,' anxiety, PTSD presents for chest pain that started at 10 AM while she was living with her cousin. She states it was a short fleeting pain lasting 1 or 2 seconds. It was in the left upper
chest area. She states she has had dull off-and-on pains in the same area sometimes lasting minutes since then. About 15 minutes after the initial sharp fleeting pain she did feel short of breath and has felt nauseous off and on since, no
vomiting.
Last week spoke with PCP and upped her Prozac from 40 mg to 60 mg. Denies diaphoresis, lightheadedness, radiation of pain.
She denies any overuse or injury. She does get P/T and Acupuncture once weekly for R hip 'pull.'
Afebrile, NAD
1:00 p.m.
CBC unremarkable
CMP: BUN 29 otherwise normal
Troponin normal
1:30
PT denies CP at this time.
Will get Troponin #2 WNL
3:45 PM:
Stable for discharge, no sign acute cardiac etiology
Patient is asking for referral to erector operator, her erector operator is at [place] and she does not want to go there anymore
Pt ambulated out with normal gait.
*Critical Care Note
Total Time (30-74mins, 75-104mins- exclusive of procedures): Not Applicable
ED Attending Note
-
Portions of this chart may have been created with voice recognition software.� Occasional wrong word or��sound alike� substitutions may have occurred due to the inherent limitations of voice recognition software.
Discharge Plan
Departure
Patient Disposition: Home (Routine Discharge)
Date of Disposition: 08/29/24
Time of Disposition: 16:07
Patient with high blood pressure during this ER visit?: No
Condition: Good
Discharge Problem:
Atypical chest pain
Instructions: Chest Pain That Is Not Caused by the Heart (DC), Acid Reflux and GERD in Adults (DC)
Prescriptions:
No Action
sucralfate 1 gram tablet
1 g PO DAILY
fluoxetine 10 mg tablet
40 mg PO DAILY
clopidogrel 75 mg tablet
75 mg PO DAILY
pantoprazole 40 mg tablet,delayed release (DR/EC)
40 mg PO DAILY
ibuprofen 600 mg tablet
600 mg PO Q6HPRN PRN (Reason: mild pain)
albuterol sulfate 90 mcg/actuation HFA aerosol inhaler
2 puff INHALATION R Q6HPRN PRN (Reason: sob/wheezing)
losartan 100 mg tablet
100 mg PO DAILY
fluticasone propionate 50 mcg/actuation spray,suspension
1 spray INTRANASAL BID
ipratropium bromide 21 mcg (0.03 %) spray,non-aerosol
2 spray INTRANASAL BID
spironolactone 50 mg tablet
50 mg PO DAILY
diazepam 5 mg tablet
2.5 - 5 mg PO HSPRN PRN (Reason: sleep)
Referrals:
Chris Benavides MD [Active] - Next open appointment
Silvestre Kay MD [Family Provider] - As needed
Activity Restrictions/Additional Instructions:
As we discussed, nothing worrisome in your workup here today. Specifically no sign of a heart attack
See your GI doctor if your stomach/nausea continues to bother you
At your request I have provided you with the name of the [facility] collections officer. Call and make appointment
Interventions
Interventions:
*Risk Screen - Suicide Last Done: 08/29/24 10:44
*General Assessment Last Done: 08/29/24 10:44
*Neglect/Abuse Screening Last Done: 08/29/24 10:44
*ED COVID-19 Vaccine History Last Done: 08/29/24 10:44
ED- Cardiac Assessment Last Done: 08/29/24 12:32
Discharge Date and Time
Print Language: SETSWANA
[2024-08-29 14:00] VITALS: BP 129/83
[2024-08-29 15:00] VITALS: BP 133/93
[2024-08-29 16:00] VITALS: BP 118/91
[2024-08-29 16:02] LABS: Troponin I < 0.012 ng/ml
== END 2024-08-29 16:55 | disposition home or self-care (01) ==
LOC: EMR 10:34
PROVIDERS: Emergency Medicine; Registered Nurse; EMERGENCY PHYSICIAN Emergency Medicine; FAMILY PHYSICIAN Family Medicine
DX: R07.89 Other chest pain (principal); I10 Essential (primary) hypertension; K21.9 Gastro-esophageal reflux disease without esophagitis; E78.00 Pure hypercholesterolemia, unspecified; F43.10 Post-traumatic stress disorder, unspecified
CPT/HCPCS: 99284; 80053; 84484; 85025; 93005

== ENCOUNTER → 2024-09-09 13:49 | Outpatient (REF) | payer MEDICARE, SELFPAY | LOC: WDC 13:49 | PROVIDERS: ATTENDING PHYSICIAN Obstetrics & Gynecology; FAMILY PHYSICIAN Family Medicine | DX: R92.2 Inconclusive mammogram (principal) | CPT/HCPCS: 76641 ==

== ENCOUNTER 2025-01-07 18:37 | Emergency (ER) | payer MEDICARE, SELFPAY ==
[2025-01-07 18:46] VITALS: BP 118/98
[2025-01-07 19:08] LABS: Hematocrit 40.4 % (37.0-47.0); Hemoglobin 13.3 g/dL (12.0-16.0); Mean Corp Hgb Conc. 32.9 g/dL (33.0-37.0); Mean Corpuscular Volume 80.6 fL (81.0-99.0); Nucleated Red Blood Cells % 0 %; Platelet Count 337 10^3/uL (130-400); Red Cell Dist. Width 14.9 % (11.5-14.5)
[2025-01-07 19:20] LABS: ALT (SGPT) 23 U/L (0-35); AST (SGOT) 22 U/L (14-36); Albumin 4.6 g/dl (3.5-5.0); Alkaline Phosphatase 74 U/L (38-126); Blood Urea Nitrogen 27 mg/dl (7-17); Calcium 9.5 mg/dl (8.4-10.2); Carbon Dioxide 24 mmol/L (22-30); Chloride 108 mmol/L (98-107); Glucose 96 mg/dl (70-99); Potassium 4.3 mmol/L (3.5-5.1); Sodium 138 mmol/L (135-145); Total Protein 7.8 g/dl (6.3-8.2); eGFR 48.09
[2025-01-07 21:37] VITALS: BP 113/76
[2025-01-07 23:00] VITALS: BP 106/71
[2025-01-07 23:30] VITALS: BP 110/61
[2025-01-08] VITALS: BP 121/67
--- NOTE | 2025-01-08 00:06 | ED.CVA ---
History of Present Illness
General
Chief Complaint: CVA/TIA Symptoms
Time Seen by Provider: 01/07/25 22:18
Onset of Stroke Symptoms
Onset of symptoms known: Yes
Date of onset of symptoms: 01/03/25
History of Present Illness
History of Present Illness:
74-year-old female presents to the emergency department for evaluation of left arm weakness and intermittent speech issues ongoing for the past 5 days. She notes that the left arm weakness resolved 5 days ago, felt as though she could not use it
appropriately. Since that time denies any numbness or weakness to the left arm. She also feels as though she is not having a hard time finding her words but is not been told by anybody in her family or around her that she is slurring or garbled.
She also notes lightheadedness. Does endorse recent significant life stressors. No chest pain or shortness of breath. No gait difficulty or vision changes.
Past History
Past History
ED Past Medical History: Hypercholesterolemia
ED Past Surgical History: and Other (Partial thyroidectomy)
Patient has exhibited threatening behavior?: No
PSI?: No
Social History
Tobacco: Non-smoker
Alcohol: None
Drug: None
Personal:
Living: with family
Employment: Employed
Review of Systems
Review of Systems
Allergies reviewed?: Yes
All Other Systems: ROS reviewed and negative except as documented in HPI and ROS
Phy Exam
Physical Exam
Physical Exam:
GEN: Well appearing, NAD, WDWN
HEENT: Oral mucosa moist, no scleral icterus, no nasal congestion
Cardiac: Regular rate and rhythm, no murmur
Lung: No respiratory distress, no tachypnea
MSK: No gross deformity or injuries
Skin: Good color, no pallor or jaundice, no rashes
Neuro: AO x3; CN II-XII grossly intact. BUE strength 5/5 in all sinclair, sensation intact and symmetric. BLE strength 5/5 in all sinclair, sensation intact and symmetric, gait steady without deficit
Psych: Calm, cooperative
Course
Orders/Labs/Results
Orders:
Orders
01/07/25 18:48
ECG [Electrocardiogram (*1)] Urgent
Reason for Study: Vertigo / Dizzy
01/07/25 18:49
EKG- Treatment ONCE
01/07/25 18:52
Complete Blood Count/With Diff Urgent
Comprehensive Metabolic Panel Urgent
01/07/25 22:30
CT Head & Neck Angio W/wo IV Urgent
Comment:
Reason For Exam: TIA; LUE weakness/aphasia
Abnormal Lab Results
01/07/25
18:52
MCV 80.6 L fL
(81.0-99.0)
MCH 26.5 L pg
(27.0-31.0)
MCHC 32.9 L g/dL
(33.0-37.0)
RDW 14.9 H %
(11.5-14.5)
Eosinophils % 6.2 H %
(0-6)
Chloride 108 H mmol/L
(98-107)
BUN 27 H mg/dl
(7-17)
Creatinine 1.2 H mg/dL
(0.6-1.0)
01/07/25 18:52
01/07/25 18:52
Vital Signs
Initial and Last Documented VS:
Initial Vital Signs
Temp Pulse Resp BP Pulse Ox
98.4 F 82 18 118/98 100
01/07/25 18:46 01/07/25 18:46 01/07/25 18:46 01/07/25 18:46 01/07/25 18:46
Last Documented Vital Signs
Temp Pulse Resp BP Pulse Ox
97.7 F 62 14 121/67 99
01/07/25 21:37 01/08/25 00:00 01/08/25 00:00 01/08/25 00:00 01/08/25 00:06
MDM/Problems Addressed
MDM/Problems Addressed:
74-year-old female presents with intermittent symptoms of left arm weakness and speech difficulty. On evaluation here patient's symptoms have resolved and she has a normal neurologic exam with no dysarthria/aphasia or extremity weakness. CT
angiogram of the head and neck is grossly unremarkable for carotid disease or subacute infarction. I discussed with the patient the options for next steps to include admission for MRI and neurology consultation versus discharge to home, she has an
appointment with her primary care physician tomorrow and due to her house to close on a house tomorrow she is not willing to be admitted. I did discuss with her the consideration for starting dual antiplatelet therapy however given that her initial
symptom onset is greater than 5 days from today, she is outside the treatment window for most studies which indicate benefit within 72 hours of onset. She also has a known history of hyperlipidemia however did not tolerate statin therapy. I have
encouraged her to discuss outpatient MRI with her primary care physician and also consider statin alternatives as a lipid-lowering agent to reduce risk further. ABCD2 score of 5 indicates a 7-day stroke risk of 5.9% and a 90-day stroke risk of
9.8%. These features were clearly communicated to the patient however she is again indicating her desire to be discharged home for primary care follow-up which I feel is reasonable at this time given that she has been stable with no neurologic
symptoms here. Will refer to outpatient neurology as well
Comment
Comment:
EKG independently interpreted by me shows normal sinus rhythm at a rate of [address] changes concerning for ischemia
*Pulse Oximetry
SaO2: 99
Oxygen Mode of Delivery: Room air
Patient hypoxic: no
*Critical Care Note
Total Time (30-74mins, 75-104mins- exclusive of procedures): Not Applicable
ED Attending Note
-
Portions of this chart may have been created with voice recognition software.� Occasional wrong word or��sound alike� substitutions may have occurred due to the inherent limitations of voice recognition software.
Discharge Plan
Departure
Patient Disposition: Home (Routine Discharge)
Date of Disposition: 01/08/25
Time of Disposition: 00:12
Patient with high blood pressure during this ER visit?: No
Discharge Problem:
Transient ischemic attack (TIA)
Instructions: Transient Ischemic Attack (DC)
Prescriptions:
No Action
sucralfate 1 gram tablet
1 g PO DAILY
fluoxetine 10 mg tablet
40 mg PO DAILY
clopidogrel 75 mg tablet
75 mg PO DAILY
pantoprazole 40 mg tablet,delayed release (DR/EC)
40 mg PO DAILY
ibuprofen 600 mg tablet
600 mg PO Q6HPRN PRN (Reason: mild pain)
albuterol sulfate 90 mcg/actuation HFA aerosol inhaler
2 puff INHALATION R Q6HPRN PRN (Reason: sob/wheezing)
losartan 100 mg tablet
100 mg PO DAILY
fluticasone propionate 50 mcg/actuation spray,suspension
1 spray INTRANASAL BID
ipratropium bromide 21 mcg (0.03 %) spray,non-aerosol
2 spray INTRANASAL BID
spironolactone 50 mg tablet
50 mg PO DAILY
diazepam 5 mg tablet
2.5 - 5 mg PO HSPRN PRN (Reason: sleep)
Referrals:
Silvestre Kay MD [Family Provider, Family Practice]
Activity Restrictions/Additional Instructions:
Follow-up with your primary care physician tomorrow as discussed to review your symptoms and obtain an order for a brain MRI. Please also consider alternatives to statins for keeping her cholesterol under control for further stroke prevention. We
discussed that Plavix in addition to aspirin is sometimes an option to treat your symptoms and prevent future stroke however you are outside the 72-hour treatment window that most studies show benefit with. If you have any recurrence of symptoms do
not hesitate to return for hospital admission
Interventions
Interventions:
*Risk Screen - Suicide Last Done: 01/07/25 18:46
*General Assessment Last Done: 01/07/25 22:14
*Neglect/Abuse Screening Last Done: 01/07/25 18:46
*ED- Fall Risk Assessment Last Done: 01/07/25 22:14
*Nursing Disposition Last Done: 01/08/25 00:30
ED- Pulmonary Assessment Last Done: 01/07/25 22:14
ED- Neurological Assessment Last Done: 01/08/25 00:10
ED- Cardiac Assessment Last Done: 01/07/25 22:14
Discharge Date and Time
Discharge Date/Time: 01/08/25 00:30
Print Language: DANISH
== END 2025-01-08 00:30 | disposition home or self-care (01) ==
LOC: EMR 18:37
PROVIDERS: Student in an Organized Health Care Education/Training Program; EMERGENCY PHYSICIAN Emergency Medicine; FAMILY PHYSICIAN Family Medicine
DX: G45.9 Transient cerebral ischemic attack, unspecified (principal); R53.1 Weakness; E78.00 Pure hypercholesterolemia, unspecified; Z88.8 Allergy status to other drugs, medicaments and biological substances; Z88.1 Allergy status to other antibiotic agents; Z91.040 Latex allergy status
CPT/HCPCS: 99284; 70496; 70498; 80053; 85025; 93005; Q9967

== ENCOUNTER 2025-01-26 16:54 | Emergency (ER) | payer MEDICARE, SELFPAY ==
[2025-01-26 17:01] VITALS: BP 138/78
[2025-01-26 17:59] LABS: Hematocrit 42.2 % (37.0-47.0); Hemoglobin 13.3 g/dL (12.0-16.0); Mean Corp Hgb Conc. 31.5 g/dL (33.0-37.0); Mean Corpuscular Volume 82.1 fL (81.0-99.0); Nucleated Red Blood Cells % 0 %; Platelet Count 393 10^3/uL (130-400); Red Cell Dist. Width 14.5 % (11.5-14.5)
[2025-01-26 18:08] LABS: ALT (SGPT) 24 U/L (0-35); AST (SGOT) 26 U/L (14-36); Albumin 4.8 g/dl (3.5-5.0); Alkaline Phosphatase 92 U/L (38-126); Blood Urea Nitrogen 22 mg/dl (7-17); Calcium 9.6 mg/dl (8.4-10.2); Carbon Dioxide 21 mmol/L (22-30); Chloride 107 mmol/L (98-107); Glucose 126 mg/dl (70-99); Potassium 4.4 mmol/L (3.5-5.1); Sodium 138 mmol/L (135-145); Total Protein 7.8 g/dl (6.3-8.2); eGFR 48.09
[2025-01-26 18:20] LABS: Troponin I < 0.012 ng/ml
[2025-01-26 19:45] VITALS: BP 124/76
[2025-01-26 20:55] VITALS: BMI 25.6
[2025-01-26 21:10] VITALS: BP 128/90
--- NOTE | 2025-01-26 21:21 | ED.GENMED ---
History of Present Illness
General
Chief Complaint: Numbness
Source: patient
Exam Limitations: none
Time Seen by Provider: 01/26/25 20:55
History of Present Illness
History of Present Illness:
74-year-old female presents with recurrent episode of left arm pain and numbness. This started after pushing a chair into place and closing a drawer. She had a similar episode last week after leaning on her arm for an extended period time fixing
her she was on the floor. [place] like her arm was at that time she got up and she was dizzy and was unstated. She was evaluated at that time had a CT angio of her head and neck which was negative. Possibility of a TIA was discussed. She is on
an aspirin but is not on a Plavix. She also cannot tolerate statins. She has an MRI of her brain scheduled for 2 days from now. She does note occasional shortness of breath. She is under a lot of stress at this time packing up her house and
moving. She is having intermittent chest discomfort over the past several days as well. No fevers. No other complaints
Past History
Past History
ED Past Medical History: Hypercholesterolemia
ED Past Surgical History: and Other (Partial thyroidectomy)
Patient has exhibited threatening behavior?: No
PSI?: No
Social History
Tobacco: Non-smoker
Alcohol: None
Drug: None
Personal:
Living: with family
Employment: Employed
Phy Exam
Physical Exam
Physical Exam:
General: Well-appearing female no acute respiratory distress
HEENT: Normocephalic face is symmetric
Heart: Regular rate and rhythm
Lungs: Clear no wheeze
Abdomen is soft nontender
Neurologic exam: Alert and oriented x 3 face is symmetric good strength to the upper extremities bilaterally. There is no weak objectively on exam. No dysarthria or aphasia. No drift on exam.
Vascular: 2+ radial pulse bilateral
Course
Orders/Labs/Results
Orders:
Orders
01/26/25 17:07
ECG [Electrocardiogram (*1)] Urgent
Reason for Study: TIA/Stroke
Other Reason for Exam: numbness L arm
EKG- Treatment ONCE
01/26/25 17:24
Complete Blood Count/With Diff Urgent
Comprehensive Metabolic Panel Urgent
Troponin I Urgent
01/26/25 21:31
D-Dimer Urgent
01/26/25 21:59
CT Chest PE Study Urgent
Comment:
Reason For Exam: sob
Abnormal Lab Results
01/26/25 01/26/25
17:24 21:31
MCH 25.9 L pg
(27.0-31.0)
MCHC 31.5 L g/dL
(33.0-37.0)
D-Dimer 0.76 H ug/mlFEU
(0.00-0.50)
Carbon Dioxide 21 L mmol/L
(22-30)
BUN 22 H mg/dl
(7-17)
Creatinine 1.2 H mg/dL
(0.6-1.0)
Glucose 126 H mg/dl
(70-99)
01/26/25 17:24
01/26/25 17:24
Vital Signs
Initial and Last Documented VS:
Initial Vital Signs
Temp Pulse Resp BP Pulse Ox
98.7 F 75 16 138/78 99
01/26/25 17:01 01/26/25 17:01 01/26/25 17:01 01/26/25 17:01 01/26/25 17:01
Last Documented Vital Signs
Temp Pulse Resp BP Pulse Ox
97.8 F 61 16 128/90 96
01/26/25 19:45 01/26/25 21:30 01/26/25 21:30 01/26/25 21:10 01/26/25 21:27
MDM/Problems Addressed
Differential Diagnosis Includes:
Patient with intermittent chest pain left arm tingling and weakness with shortness of breath. Here 1 week ago for similar symptoms and thought to potentially have a TIA. She cannot tolerate Plavix or statins. She is on a baby aspirin. Spoke with
her family doctor and they sent her in for possible embolism. EKG shows sinus rhythm and troponin undetectable. Will check D-dimer. I reviewed the CT angiogram of her head and neck last visit which was negative
*Pulse Oximetry
SaO2: 96
Oxygen Mode of Delivery: Room air
Patient hypoxic: no
*Critical Care Note
Total Time (30-74mins, 75-104mins- exclusive of procedures): Not Applicable
Update Note
Update Note:
Patient reevaluated vital signs remained stable. She did bring up shortness of breath and chest discomfort and her doctor wanted her evaluated for possible blood clot. D-dimer was slightly elevated which prompted a CT of the chest which was
negative. Regarding left arm weakness and numbness she has an MRI of her brain in 2 days. Discussed potential role for admission for possible TIA however patient declines admission. She states she cannot tolerate statins or Plavix. She is on an
aspirin. Return precautions were given but will be just
ED Attending Note
-
Portions of this chart may have been created with voice recognition software.� Occasional wrong word or��sound alike� substitutions may have occurred due to the inherent limitations of voice recognition software.
Discharge Plan
Departure
Patient Disposition: Home (Routine Discharge)
Date of Disposition: 01/26/25
Time of Disposition: 22:50
Patient with high blood pressure during this ER visit?: No
Discharge Problem:
Arm paresthesia, left
Instructions: Paresthesia (DC)
Prescriptions:
No Action
sucralfate 1 gram tablet
1 g PO DAILY
fluoxetine 10 mg tablet
40 mg PO DAILY
clopidogrel 75 mg tablet
75 mg PO DAILY
pantoprazole 40 mg tablet,delayed release (DR/EC)
40 mg PO DAILY
ibuprofen 600 mg tablet
600 mg PO Q6HPRN PRN (Reason: mild pain)
albuterol sulfate 90 mcg/actuation HFA aerosol inhaler
2 puff INHALATION R Q6HPRN PRN (Reason: sob/wheezing)
losartan 100 mg tablet
100 mg PO DAILY
fluticasone propionate 50 mcg/actuation spray,suspension
1 spray INTRANASAL BID
ipratropium bromide 21 mcg (0.03 %) spray,non-aerosol
2 spray INTRANASAL BID
spironolactone 50 mg tablet
50 mg PO DAILY
diazepam 5 mg tablet
2.5 - 5 mg PO HSPRN PRN (Reason: sleep)
Referrals:
Silvestre Kay MD [Family Provider, Family Practice]
Activity Restrictions/Additional Instructions:
Please return here for worsening symptoms. Continue the baby aspirin. Obtain MRI as planned. Follow up with PMD otherwise.
Interventions
Interventions:
*Risk Screen - Suicide Last Done: 01/26/25 20:55
*General Assessment Last Done: 01/26/25 20:55
*Neglect/Abuse Screening Last Done: 01/26/25 20:55
*ED- Fall Risk Assessment Last Done: 01/26/25 20:55
*ED COVID-19 Vaccine History Last Done: 01/26/25 20:55
Discharge Date and Time
Print Language: DOMINICAN
[2025-01-26 21:50] LABS: D-Dimer 0.76 ug/mlFEU (0.00-0.50)
== END 2025-01-26 23:15 | disposition home or self-care (01) ==
LOC: EMR 16:54
PROVIDERS: Emergency Medicine; Physician Assistant; EMERGENCY PHYSICIAN Student in an Organized Health Care Education/Training Program; FAMILY PHYSICIAN Family Medicine
DX: R20.0 Anesthesia of skin (principal); M79.602 Pain in left arm; E78.00 Pure hypercholesterolemia, unspecified
CPT/HCPCS: 99284; 71275; 80053; 84484; 85025; 85379; 93005; Q9967

== ENCOUNTER → 2025-01-27 07:49 | Outpatient (REF) | payer MEDICARE, SELFPAY | LOC: RAD 07:49 | PROVIDERS: ATTENDING PHYSICIAN Specialist | DX: N18.31 Chronic kidney disease, stage 3a (principal) | CPT/HCPCS: 93975 ==

== ENCOUNTER 2025-03-22 10:35 | Emergency (ER) | payer MEDICARE, SELFPAY ==
[2025-03-22 10:40] VITALS: BP 144/89
[2025-03-22 11:33] LABS: Hematocrit 39.7 % (37.0-47.0); Hemoglobin 13.0 g/dL (12.0-16.0); Mean Corp Hgb Conc. 32.7 g/dL (33.0-37.0); Mean Corpuscular Volume 78.5 fL (81.0-99.0); Platelet Count 312 10^3/uL (130-400); Red Cell Dist. Width 14.6 % (11.5-14.5)
[2025-03-22 11:45] LABS: Blood Urea Nitrogen 17 mg/dl (7-17); Calcium 9.4 mg/dl (8.4-10.2); Carbon Dioxide 23 mmol/L (22-30); Chloride 109 mmol/L (98-107); Glucose 109 mg/dl (70-99); Potassium 4.6 mmol/L (3.5-5.1); Sodium 139 mmol/L (135-145); eGFR 53.39
--- NOTE | 2025-03-22 12:16 | ED.GENMED ---
History of Present Illness
General
Chief Complaint: Gait Dysfunction
Time Seen by Provider: 03/22/25 11:01
History of Present Illness
History of Present Illness:
74-year-old female presents to the emergency department for evaluation of dizziness and gait instability ongoing for at least the past 3 to 4 weeks, this is for the duration of time noted to triage however when questioned in the room the patient
states that has been going on longer than this. She feels as though when she walks she cannot maintain a straight line and has to correct herself. She states 'I almost fell yesterday'. Denies headache or vision changes. Notes that she has been
also increasingly depressed as a result of her dog passing away within the past month. Her psychiatrist increased her Lamictal approximately 1 month ago from 75 mg to 100 mg and she feels that this may have contributed to worsening imbalance. She
also endorses poor p.o. intake most days and has lost about 7 pounds during this time. Denies SI or HI.
Past History
Past History
ED Past Medical History: Hypercholesterolemia
ED Past Surgical History: and Other (Partial thyroidectomy)
Patient has exhibited threatening behavior?: No
PSI?: No
Social History
Tobacco: Non-smoker
Alcohol: None
Drug: None
Personal:
Living: with family
Employment: Employed
Review of Systems
Review of Systems
Allergies reviewed?: Yes
All Other Systems: ROS reviewed and negative except as documented in HPI and ROS
Phy Exam
Physical Exam
Physical Exam:
GEN: Well appearing, NAD, WDWN
HEENT: Oral mucosa moist, no scleral icterus, no nasal congestion
Cardiac: Regular rate
Lung: No respiratory distress, no tachypnea
MSK: No gross deformity or injuries
Skin: Good color, no pallor or jaundice, no rashes
Neuro: AO x3; CN II-XII grossly intact. BUE strength 5/5 in all sinclair, sensation intact and symmetric. BLE strength 5/5 in all sinclair, sensation intact and symmetric. Normal [id number] and [id number], gait observed which is steady without
ataxia
Psych: Calm, cooperative
Course
Orders/Labs/Results
Orders:
Orders
03/22/25 11:18
Basic Metabolic Panel Urgent
Complete Blood Count/No Diff Urgent
Lamotrigine (Lamictal) [S] Urgent
Abnormal Lab Results
03/22/25
11:18
MCV 78.5 L fL
(81.0-99.0)
MCH 25.7 L pg
(27.0-31.0)
MCHC 32.7 L g/dL
(33.0-37.0)
RDW 14.6 H %
(11.5-14.5)
Chloride 109 H mmol/L
(98-107)
Creatinine 1.1 H mg/dL
(0.6-1.0)
Glucose 109 H mg/dl
(70-99)
03/22/25 11:18
03/22/25 11:18
Vital Signs
Initial and Last Documented VS:
Initial Vital Signs
Temp Pulse Resp BP Pulse Ox
98.3 F 66 16 144/89 100
03/22/25 10:40 03/22/25 10:40 03/22/25 10:40 03/22/25 10:40 03/22/25 10:40
Last Documented Vital Signs
Temp Pulse Resp BP Pulse Ox
98.3 F 66 16 144/89 100
03/22/25 10:40 03/22/25 10:40 03/22/25 10:40 03/22/25 10:40 03/22/25 12:17
MDM/Problems Addressed
MDM/Problems Addressed:
The patient had a CT scan of her brain 2 months ago and reportedly underwent a brain MRI at an outside facility within the past 3 weeks that she states was normal however I do not have immediate access to these records. Given that I do not see
rational reasoning to obtain a repeat head CT at this time as neurologic malignancy is not likely. I did send lamotrigine levels as supratherapeutic levels could potentially cause some of her neurologic symptoms. Will have her follow-up with a
primary care physician, Lamictal level pending at time of discharge
*Pulse Oximetry
SaO2: 100
Oxygen Mode of Delivery: Room air
Patient hypoxic: no
*Critical Care Note
Total Time (30-74mins, 75-104mins- exclusive of procedures): Not Applicable
ED Attending Note
-
Portions of this chart may have been created with voice recognition software.� Occasional wrong word or��sound alike� substitutions may have occurred due to the inherent limitations of voice recognition software.
Discharge Plan
Departure
Patient Disposition: Home (Routine Discharge)
Date of Disposition: 03/22/25
Time of Disposition: 12:16
Patient with high blood pressure during this ER visit?: No
Discharge Problem:
Dizziness
Instructions: Dizziness in adults - ED (DC)
Prescriptions:
No Action
sucralfate 1 gram tablet
1 g PO DAILY
fluoxetine 10 mg tablet
40 mg PO DAILY
clopidogrel 75 mg tablet
75 mg PO DAILY
pantoprazole 40 mg tablet,delayed release (DR/EC)
40 mg PO DAILY
ibuprofen 600 mg tablet
600 mg PO Q6HPRN PRN (Reason: mild pain)
albuterol sulfate 90 mcg/actuation HFA aerosol inhaler
2 puff INHALATION R Q6HPRN PRN (Reason: sob/wheezing)
losartan 100 mg tablet
100 mg PO DAILY
fluticasone propionate 50 mcg/actuation spray,suspension
1 spray INTRANASAL BID
ipratropium bromide 21 mcg (0.03 %) spray,non-aerosol
2 spray INTRANASAL BID
spironolactone 50 mg tablet
50 mg PO DAILY
diazepam 5 mg tablet
2.5 - 5 mg PO HSPRN PRN (Reason: sleep)
Referrals:
Silvestre Kay MD [Family Provider, Family Practice]
Activity Restrictions/Additional Instructions:
Your lamotrigine level should be resulted within the next 48 hours and we will contact you if these are abnormal
I suspect your symptoms are related to your underlying depression and lack of adequate food intake and liquid intake. Please be sure to eat at least 2-3 solid meals daily and drink adequate fluids. Follow-up with your primary care physician
Interventions
Interventions:
*Risk Screen - Suicide Last Done: 03/22/25 10:40
*General Assessment Last Done: 03/22/25 10:40
*Neglect/Abuse Screening Last Done: 03/22/25 10:40
*ED- Fall Risk Assessment Last Done: 03/22/25 11:15
*ED COVID-19 Vaccine History Last Done: 03/22/25 11:15
*Nursing Disposition Last Done: 03/22/25 12:49
ED- Neurological Assessment Last Done: 03/22/25 11:15
ED-Musculoskeletal Assessment Last Done: 03/22/25 11:15
ED Swallowing Screen Last Done: 03/22/25 11:15
Discharge Date and Time
Discharge Date/Time: 03/22/25 12:50
Print Language: HUNGARIAN
== END 2025-03-22 12:50 | disposition home or self-care (01) ==
LOC: EMR 10:35
PROVIDERS: Physician Assistant; EMERGENCY PHYSICIAN Emergency Medicine; FAMILY PHYSICIAN Family Medicine
DX: R42 Dizziness and giddiness (principal); R26.89 Other abnormalities of gait and mobility; E78.00 Pure hypercholesterolemia, unspecified
CPT/HCPCS: 99283; 80048; 80175; 85027

== ENCOUNTER 2025-04-07 17:43 | Emergency (ER) | payer MEDICARE, SELFPAY ==
[2025-04-07 17:46] VITALS: BP 166/84
[2025-04-07 19:20] VITALS: BMI 24.5
--- NOTE | 2025-04-07 19:29 | ED.GENMED ---
History of Present Illness
General
Chief Complaint: Skin Surface Trauma
Source: patient
Exam Limitations: none
Time Seen by Provider: 04/07/25 19:15
History of Present Illness
History of Present Illness:
74yoF with a history of hypertension, hyperlipidemia, and prior TIA presenting for evaluation of a right foot laceration. Patient was taking the trash out this afternoon approximately 5 hours ago when she was accidentally cut with an open can. She
applied a clot powder to stop the bleeding. Unknown last Tdap.
Past History
Past History
ED Past Medical History: Hypercholesterolemia
ED Past Surgical History: and Other (Partial thyroidectomy)
Patient has exhibited threatening behavior?: No
PSI?: No
Social History
Tobacco: Non-smoker
Alcohol: None
Drug: None
Personal:
Living: with family
Employment: Employed
Phy Exam
General Physical Exam
General Presentation: well appearing and no apparent distress
General Skin: warm and dry
General Habitus: normal
General Mental: alert
ENT Exam
ENT Exam: normocephalic
Neurological Exam
Neurological Exam: alert
Skin Exam
Skin Exam: normal color, warm/dry and other (Approx 4cm laceration noted to the dorsum of the R foot. No exposed tendon. No active bleeding. 2+ DP pulse and sensation intact.)
Psychiatric Exam
Psychiatric Exam: normal mood/affect
Course
Orders/Labs/Results
Orders:
Orders
04/07/25 19:28
Tetanus/Diphth/Acelpertussis [Adacel] 0.5 ml IM .ONCE ONE
Vital Signs
Initial and Last Documented VS:
Initial Vital Signs
Temp Pulse Resp BP Pulse Ox
97.9 F 72 20 166/84 98
04/07/25 17:46 04/07/25 17:46 04/07/25 17:46 04/07/25 17:46 04/07/25 17:46
Last Documented Vital Signs
Temp Pulse Resp BP Pulse Ox
98.1 F 67 16 124/75 99
04/07/25 20:07 04/07/25 20:07 04/07/25 20:07 04/07/25 20:07 04/07/25 20:07
Procedures
Laceration Closure
Right Dorsal Foot:
Size of Wound in cm: 4
Description of Wound Edges: sharp
Preparation: cleaned with saline
Anesthesia: 1% Lidocaine with epi
Wound exploration: explored to base- no FB
Type of Closure: single layer closure
Skin Closure Material: 4-0 nylon
Number of sutures: 5
MDM/Problems Addressed
Differential Diagnosis Includes:
74yoF here with a R foot laceration. 4cm laceration noted to the dorsum of the foot. No active bleeding or evidence of neurovascular injury. Wound irrigated with saline and repaired as above. Tdap updated. Home wound care discussed. She was advised
to have sutures removed in 10-14 days and return to the ER with any signs of infection.
*Pulse Oximetry
SaO2: 98
Oxygen Mode of Delivery: Room air
Patient hypoxic: no
*Critical Care Note
Total Time (30-74mins, 75-104mins- exclusive of procedures): Not Applicable
ED Attending Note
-
Portions of this chart may have been created with voice recognition software.� Occasional wrong word or��sound alike� substitutions may have occurred due to the inherent limitations of voice recognition software.
Discharge Plan
Departure
Patient Disposition: Home (Routine Discharge)
Date of Disposition: 04/07/25
Time of Disposition: 19:54
Patient with high blood pressure during this ER visit?: Yes
Discharge Problem:
Laceration of dorsum of right foot
Instructions: Laceration Repair With Stitches (DC)
Prescriptions:
No Action
sucralfate 1 gram tablet
1 g PO DAILY
fluoxetine 10 mg tablet
40 mg PO DAILY
clopidogrel 75 mg tablet
75 mg PO DAILY
pantoprazole 40 mg tablet,delayed release (DR/EC)
40 mg PO DAILY
ibuprofen 600 mg tablet
600 mg PO Q6HPRN PRN (Reason: mild pain)
albuterol sulfate 90 mcg/actuation HFA aerosol inhaler
2 puff INHALATION R Q6HPRN PRN (Reason: sob/wheezing)
losartan 100 mg tablet
100 mg PO DAILY
fluticasone propionate 50 mcg/actuation spray,suspension
1 spray INTRANASAL BID
ipratropium bromide 21 mcg (0.03 %) spray,non-aerosol
2 spray INTRANASAL BID
spironolactone 50 mg tablet
50 mg PO DAILY
diazepam 5 mg tablet
2.5 - 5 mg PO HSPRN PRN (Reason: sleep)
Referrals:
Silvestre Kay MD [Family Provider, Family Practice]
Activity Restrictions/Additional Instructions:
Keep wound clean and dry. Change dressings daily.
Sutures should be removed in 10 to 14 days. Return to the ER with any signs of infection (warmth, redness, drainage).
Interventions
Interventions:
*Risk Screen - Suicide Last Done: 04/07/25 17:46
*General Assessment Last Done: 04/07/25 19:30
*Neglect/Abuse Screening Last Done: 04/07/25 19:30
*ED- Fall Risk Assessment Last Done: 04/07/25 20:06
*ED COVID-19 Vaccine History Last Done: 04/07/25 19:30
*ED Influenza Vaccine History Last Done: 04/07/25 19:30
*Nursing Disposition Last Done: 04/07/25 20:07
ED-Skin Assessment Last Done: 04/07/25 19:31
Discharge Date and Time
Discharge Date/Time: 04/07/25 20:09
Print Language: TUVALUAN
[2025-04-07] MEDS: ADACEL 0.5 ML IM (19:53)
[2025-04-07 20:07] VITALS: BP 124/75
== END 2025-04-07 20:09 | disposition home or self-care (01) ==
LOC: EMR 17:43
PROVIDERS: EMERGENCY PHYSICIAN Emergency Medicine; FAMILY PHYSICIAN Family Medicine
DX: S91.311A Laceration without foreign body, right foot, initial encounter (principal); W26.8XXA Contact with other sharp object(s), not elsewhere classified, initial encounter; Y93.E9 Activity, other interior property and clothing maintenance; I10 Essential (primary) hypertension; E78.00 Pure hypercholesterolemia, unspecified; Z86.73 Personal history of transient ischemic attack (TIA), and cerebral infarction without residual deficits; Z23 Encounter for immunization
CPT/HCPCS: 90471; 12002; 99282; 90715

== ENCOUNTER → 2025-05-19 11:55 | Outpatient (REF) | payer MEDICARE, SELFPAY | LOC: DHSLP 11:55 | PROVIDERS: ATTENDING PHYSICIAN Internal Medicine Critical Care Medicine; FAMILY PHYSICIAN Family Medicine | DX: G47.30 Sleep apnea, unspecified (principal); R06.83 Snoring | CPT/HCPCS: 95800 ==

== ENCOUNTER → 2025-06-10 16:09 | Outpatient (REF) | payer MEDICARE, SELFPAY | LOC: WDC 16:09 | PROVIDERS: ATTENDING PHYSICIAN Surgery; FAMILY PHYSICIAN Family Medicine | DX: Z12.31 Encounter for screening mammogram for malignant neoplasm of breast (principal) | CPT/HCPCS: 77063; 77067 ==

== ENCOUNTER 2025-06-17 21:50 | Emergency (ER) | payer MEDICARE, SELFPAY ==
[2025-06-17 21:54] VITALS: BP 157/90
--- NOTE | 2025-06-18 00:12 | ED.GENMED ---
History of Present Illness
General
Chief Complaint: Change in Mental Status
Source: patient
Exam Limitations: none
Time Seen by Provider: 06/17/25 23:27
Nursing documentation reviewed up to this point in time: agreed with
History of Present Illness
History of Present Illness:
74 y/o F
here with multiple symptoms
months of intermittent dizziness/balance problems, amb dysfunction at times
sees PT
has had vestibular therapy before
also mild memory problems
has had outpatient W/U neg (mri)
3 days ago she fell roman up the steps
and ever since then all symptoms worse
initially said she didn't hit her head but then said she did
required her to call 911
no LOC
[facility] for 3 days:
i called a colleague there who was able to recount the patient's discharge surmmary:
CTA MRI NEG
dizziness, vertiginous with standing
intermittently orthostatic
hallucinations, for years; 3 years ago
has h/o outpateitn neuro , no concerns for neurogenative process
[facility] saw her while there, pt has h/o anxiety and depression, worse after 3 years ago
on prozac and lamotrigine
medicine note today meclizine milder episodes
seemed as if pt was likely to be discharged today but then pt got agitated that her BP wasn't taken while she was on the phone and abruptly decided to leave
refused to let them take out her IV so security was called.
she ultimately let them
but her perception of what happened seems slightly clouded by her confusion/paranoia
she is here for 2nd opinion
Past History
Past History
ED Past Medical History: Hypercholesterolemia
ED Past Surgical History: and Other (Partial thyroidectomy)
Patient has exhibited threatening behavior?: No
PSI?: No
Social History
Tobacco: Non-smoker
Alcohol: None
Drug: None
Personal:
Living: with family
Employment: Employed
Course
Orders/Labs/Results
Orders:
Orders
06/18/25 00:21
Electrocardiogram (*1) Urgent
Reason for Study: Fatigue / Weakness
EKG- Treatment ONCE
Orthostatic VS- Treatment ONCE
Ceribell [Rapid Point of Care EEG (ED/ICU ONLY)] ONCE
Indications for use:: Altered Mental Status
06/18/25 00:22
CT Head W/o Iv Contrast Urgent
Comment:
Reason For Exam: fall, confusion, head strike
06/18/25 01:27
Complete Blood Count/With Diff Urgent
Comprehensive Metabolic Panel Urgent
TSH Reflex To Free T4 Urgent
Abnormal Lab Results
06/18/25
01:27
WBC 11.3 H 10^3/uL
(4.8-10.8)
MCV 78.2 L fL
(81.0-99.0)
MCH 25.8 L pg
(27.0-31.0)
RDW 15.9 H %
(11.5-14.5)
Abs Immat Gran (auto) 0.1 H 10^3/uL
(0-0.05)
Absolute Neuts (auto) 7.3 H 10^3/uL
(1.4-6.5)
Absolute Monos (auto) 0.8 H 10^3/uL
(0.1-0.6)
Chloride 108 H mmol/L
(98-107)
Creatinine 1.1 H mg/dL
(0.6-1.0)
06/18/25 01:27
06/18/25 01:27
Vital Signs
Initial and Last Documented VS:
Initial Vital Signs
Temp Pulse Resp BP Pulse Ox
36.8 C 89 16 157/90 100
06/17/25 21:54 06/17/25 21:54 06/17/25 21:54 06/17/25 21:54 06/17/25 21:54
Last Documented Vital Signs
Temp Pulse Resp BP Pulse Ox
36.8 C 89 16 157/90 100
06/17/25 21:54 06/17/25 21:54 06/17/25 21:54 06/17/25 21:54 06/18/25 03:01
*Pulse Oximetry
SaO2: 100
Oxygen Mode of Delivery: Room air
ED Attending Note
-
Portions of this chart may have been created with voice recognition software.� Occasional wrong word or��sound alike� substitutions may have occurred due to the inherent limitations of voice recognition software.
Discharge Plan
Departure
Patient Disposition: Home (Routine Discharge)
Date of Disposition: 06/18/25
Time of Disposition: 03:35
Patient with high blood pressure during this ER visit?: Yes
Condition: Fair
Covid-19: Not Applicable
Discharge Problem:
Balance problem
Instructions: Altered Mental Status (DC)
Prescriptions:
No Action
sucralfate 1 gram tablet
1 g PO DAILY
fluoxetine 10 mg tablet
40 mg PO DAILY
clopidogrel 75 mg tablet
75 mg PO DAILY
pantoprazole 40 mg tablet,delayed release (DR/EC)
40 mg PO DAILY
ibuprofen 600 mg tablet
600 mg PO Q6HPRN PRN (Reason: mild pain)
albuterol sulfate 90 mcg/actuation HFA aerosol inhaler
2 puff INHALATION R Q6HPRN PRN (Reason: sob/wheezing)
losartan 100 mg tablet
100 mg PO DAILY
fluticasone propionate 50 mcg/actuation spray,suspension
1 spray INTRANASAL BID
ipratropium bromide 21 mcg (0.03 %) spray,non-aerosol
2 spray INTRANASAL BID
spironolactone 50 mg tablet
50 mg PO DAILY
diazepam 5 mg tablet
2.5 - 5 mg PO HSPRN PRN (Reason: sleep)
Referrals:
Silvestre Kay MD [Family Provider, [facility]]
Activity Restrictions/Additional Instructions:
Your workup here was reassuring. We did check to make sure there was no ongoing seizure activity, your electrolytes were okay. It sounds like maybe you could have a touch of vertigo. There is medication called meclizine that you can try twice a
day as needed. You should follow-up with the physical therapist as well. Your CAT scan was negative. Return for any
worsening symptoms, repeated falls, confusion etc.
Otherwise see your doctor
Interventions
Interventions:
*General Assessment Last Done: 06/18/25 01:45
*Neglect/Abuse Screening Last Done: 06/17/25 21:54
*ED COVID-19 Vaccine History Last Done: 06/18/25 01:45
*ED Influenza Vaccine History Last Done: 06/18/25 01:45
[facility] Risk Assessment Tool Last Done: 06/18/25 01:46
*Risk Screen - Suicide (C-SSRS) Last Done: 06/17/25 21:54
*Nursing Disposition Last Done: 06/18/25 04:12
ED- Pulmonary Assessment Last Done: 06/18/25 03:01
ED-Psychological Assessment Last Done: 06/18/25 03:01
ED- Neurological Assessment Last Done: 06/18/25 03:01
ED- Cardiac Assessment Last Done: 06/18/25 03:01
ED Swallowing Screen Last Done: 06/18/25 03:01
Discharge Date and Time
Discharge Date/Time: 06/18/25 04:12
Print Language: ITALIAN
[2025-06-18 00:36] VITALS: BP 141/100; BP 144/88; BP 165/96; PULSE 75; PULSE 77; PULSE 82
[2025-06-18 01:42] LABS: Hematocrit 40.9 % (37.0-47.0); Hemoglobin 13.5 g/dL (12.0-16.0); Mean Corp Hgb Conc. 33.0 g/dL (33.0-37.0); Mean Corpuscular Volume 78.2 fL (81.0-99.0); Nucleated Red Blood Cells % 0 %; Platelet Count 337 10^3/uL (130-400); Red Cell Dist. Width 15.9 % (11.5-14.5)
[2025-06-18 02:04] LABS: ALT (SGPT) 27 U/L (0-35); AST (SGOT) 31 U/L (14-36); Albumin 4.5 g/dl (3.5-5.0); Alkaline Phosphatase 80 U/L (38-126); Blood Urea Nitrogen 17 mg/dl (7-17); Calcium 9.9 mg/dl (8.4-10.2); Carbon Dioxide 22 mmol/L (22-30); Chloride 108 mmol/L (98-107); Glucose 97 mg/dl (70-99); Potassium 4.0 mmol/L (3.5-5.1); Sodium 138 mmol/L (135-145); Total Protein 7.6 g/dl (6.3-8.2); eGFR 53.39
--- NOTE | 2025-06-18 07:43 | W.RAPID.EEG ---
Rapid EEG
-
Procedure Date: 06/18/25
Patient Status: Inpatient
Results:
Impression:
No evidence of status epilepticus
Recording Information:
Patient was awake and asleep
Diagnostic Recording Time: 01:20:52 (81 minutes)
Recording 1: [email or web address]
Start Time: Jun 18, 2025 01:34 AM End Time: Jun 18, 2025 02:55 AM
Recording Technique: This EEG was obtained using a 10 lead, 8 channel system positioned circumferentially without any parasagittal coverage (rapid EEG). Computer selected EEG is reviewed as well as background features and all clinically significant
events. Clarity algorithm utilized and implemented to provide analysis of underlying activity and seizure detection used to facilitate reading. ICD-10 Code TC65M49
Clinical History: PATRICIA LAURENT is a 74 year old Other, Other: ATAX[place] patient undergoing EEG to screen for non-convulsive status epilepticus.
== END 2025-06-18 04:12 | disposition home or self-care (01) ==
LOC: EMR 21:50
PROVIDERS: Physician Assistant; EMERGENCY PHYSICIAN Emergency Medicine; FAMILY PHYSICIAN Family Medicine
DX: R26.81 Unsteadiness on feet (principal); R03.0 Elevated blood-pressure reading, without diagnosis of hypertension; E78.00 Pure hypercholesterolemia, unspecified; F41.9 Anxiety disorder, unspecified; F32.A Depression, unspecified; Z79.02 Long term (current) use of antithrombotics/antiplatelets
CPT/HCPCS: 99284; 70450; 80053; 84443; 85025; 93005; 95813

== ENCOUNTER 2025-06-20 12:13 | Emergency (ER) | payer MEDICARE, SELFPAY ==
[2025-06-20 12:15] VITALS: BP 155/93
[2025-06-20 12:48] LABS: Hematocrit 41.8 % (37.0-47.0); Hemoglobin 13.6 g/dL (12.0-16.0); Mean Corp Hgb Conc. 32.5 g/dL (33.0-37.0); Mean Corpuscular Volume 79.6 fL (81.0-99.0); Nucleated Red Blood Cells % 0 %; Platelet Count 336 10^3/uL (130-400); Red Cell Dist. Width 16.2 % (11.5-14.5)
[2025-06-20 13:01] LABS: ALT (SGPT) 43 U/L (0-35); AST (SGOT) 38 U/L (14-36); Albumin 5.0 g/dl (3.5-5.0); Alkaline Phosphatase 88 U/L (38-126); Blood Urea Nitrogen 17 mg/dl (7-17); Calcium 9.7 mg/dl (8.4-10.2); Carbon Dioxide 22 mmol/L (22-30); Chloride 105 mmol/L (98-107); Glucose 125 mg/dl (70-99); Potassium 3.9 mmol/L (3.5-5.1); Sodium 139 mmol/L (135-145); Total Protein 8.2 g/dl (6.3-8.2); eGFR 48.09
[2025-06-20 13:10] LABS: Troponin I < 0.012 ng/ml
[2025-06-20 14:18] VITALS: BP 135/90
--- NOTE | 2025-06-20 14:51 | ED.GENMED ---
History of Present Illness
General
Chief Complaint: Breathing Problem
Time Seen by Provider: 06/20/25 14:20
History of Present Illness
History of Present Illness:
74-year-old female with history of anxiety, depression, asthma presenting to the emergency department for multiple complaints. Patient reports for the past several months has been having tremulousness, particularly when going up and down the
stairs. She feels very unsteady and has had falls. She has been seen by neurology with noted unremarkable workup. Also notes memory issues, however reports she was negative for testing for Parkinson's and dementia. She reports that she has had
head imaging and they believe her symptoms are from stress and anxiety, with her passing about 3 years ago. Additionally, she notes today she had a coughing fit. She has been having some dyspnea, reports she has been seen by small arms repairer
with unremarkable workup. Patient seen in the hospital 2 days ago for similar symptoms, unremarkable workup including CT head imaging. Denies fever, chest pain, focal weakness, visual changes. Denies additional acute medical complaints
Past History
Past History
ED Past Medical History: Hypercholesterolemia
ED Past Surgical History: and Other (Partial thyroidectomy)
Patient has exhibited threatening behavior?: No
PSI?: No
Social History
Tobacco: Non-smoker
Alcohol: None
Drug: None
Personal:
Living: with family
Employment: Employed
Phy Exam
Physical Exam
Physical Exam:
General: Well-appearing, no clinical signs of dehydration, nontoxic and in no acute distress
HEENT: protecting airway, pupils equal and reactive, extraocular movements intact
Neck: appears supple
CV: Normal heart rate, regular rhythm, no evidence of cyanosis
Resp: No accessory muscle use, no increased work of breathing, lungs clear to auscultation bilaterally
Abd: Soft and non-distended, no tenderness to palpation
Extremities: No deformities, no swelling, no erythema
Neuro: alert, no focal neurologic deficit. No tremulousness
: deferred
Rectal: deferred
Psych: Normal affect
Skin: Intact
Scores
Heart Failure Risk
Heart Failure Risk Score: Not Applicable
Course
Orders/Labs/Results
Orders:
Orders
06/20/25 12:18
Electrocardiogram (*1) Urgent
Reason for Study: Shortness of Breath
EKG- Treatment ONCE
06/20/25 12:31
Complete Blood Count/With Diff Urgent
Comprehensive Metabolic Panel Urgent
Troponin I Urgent
06/20/25 14:47
CR Chest - 2 Views Urgent
Comment:
Reason For Exam: SOB
Abnormal Lab Results
06/20/25
12:31
MCV 79.6 L fL
(81.0-99.0)
MCH 25.9 L pg
(27.0-31.0)
MCHC 32.5 L g/dL
(33.0-37.0)
RDW 16.2 H %
(11.5-14.5)
Abs Immat Gran (auto) 0.1 H 10^3/uL
(0-0.05)
Absolute Lymphs (auto) 1.1 L 10^3/uL
(1.2-3.4)
Immature Gran % 0.8 H %
(0-0.5)
Neutrophils % 78.3 H %
(42.2-75.2)
Lymphocytes % 14.9 L %
(20.5-51.1)
Creatinine 1.2 H mg/dL
(0.6-1.0)
Glucose 125 H mg/dl
(70-99)
AST 38 H U/L
(14-36)
ALT 43 H U/L
(0-35)
06/20/25 12:31
06/20/25 12:31
Vital Signs
Initial and Last Documented VS:
Initial Vital Signs
Temp Pulse Resp BP Pulse Ox
98.5 F 79 16 155/93 100
06/20/25 12:15 06/20/25 12:15 06/20/25 12:15 06/20/25 12:15 06/20/25 12:15
Last Documented Vital Signs
Temp Pulse Resp BP Pulse Ox
98.5 F 75 18 135/90 97
06/20/25 12:15 06/20/25 14:18 06/20/25 14:18 06/20/25 14:18 06/20/25 15:28
MDM/Problems Addressed
MDM/Problems Addressed:
74-year-old female with history of anxiety, depression, asthma presenting for tremulousness, and shortness of breath with cough. Vital significant for mild hypertension.
On exam patient is resting comfortably, no acute distress. No respiratory distress, no tremulousness. On review of EMR, patient seen in the hospital 2 days ago for similar symptoms. Patient had been seen and evaluated for the symptoms in the
past, with symptoms thought to be secondary to underlying stress and anxiety. Patient 2 days ago had unremarkable workup including CT imaging of the brain. Patient also had ceribel, unremarkable. Recent admission to [facility] where patient had
CT/CTA/MRI, thought symptoms could be vertiginous in quality. No present concern for central neurologic process. No significant intention tremor. Do suspect some underlying early onset dementia. No indication for repeat head imaging. Regarding
her dyspnea, no increased work of breathing, lungs clear to auscultation. Patient afebrile, nontoxic with lower suspicion for significant infection. Will screen with chest x-ray imaging. Patient notes that she has been seen and evaluated by
pulmonology, noted unremarkable exam
17:00 - Patient's labs are unremarkable and chest x-ray without acute cardiopulmonary disease. At this time without suspicion for acute pathology to patient's ongoing symptoms. Patient is awake, alert, oriented, again no tremulousness, no
respiratory distress. Feel stable for discharge. Patient has an appointment upcoming with another neurologist for second opinion. Return precautions discussed and patient verbalized understanding
*Pulse Oximetry
SaO2: 97
Oxygen Mode of Delivery: Room air
Patient hypoxic: no
*Critical Care Note
Total Time (30-74mins, 75-104mins- exclusive of procedures): Not Applicable
ED Attending Note
-
Portions of this chart may have been created with voice recognition software.� Occasional wrong word or��sound alike� substitutions may have occurred due to the inherent limitations of voice recognition software.
Discharge Plan
Departure
Patient Disposition: Home (Routine Discharge)
Date of Disposition: 06/20/25
Time of Disposition: 17:07
Patient with high blood pressure during this ER visit?: No
Condition: Good
Discharge Problem:
Dyspnea, Tremulousness
Instructions: Tremor, Shortness of Breath (Dyspnea) (DC)
Prescriptions:
No Action
sucralfate 1 gram tablet
1 g PO DAILY
fluoxetine 10 mg tablet
40 mg PO DAILY
clopidogrel 75 mg tablet
75 mg PO DAILY
pantoprazole 40 mg tablet,delayed release (DR/EC)
40 mg PO DAILY
ibuprofen 600 mg tablet
600 mg PO Q6HPRN PRN (Reason: mild pain)
albuterol sulfate 90 mcg/actuation HFA aerosol inhaler
2 puff INHALATION R Q6HPRN PRN (Reason: sob/wheezing)
losartan 100 mg tablet
100 mg PO DAILY
fluticasone propionate 50 mcg/actuation spray,suspension
1 spray INTRANASAL BID
ipratropium bromide 21 mcg (0.03 %) spray,non-aerosol
2 spray INTRANASAL BID
spironolactone 50 mg tablet
50 mg PO DAILY
diazepam 5 mg tablet
2.5 - 5 mg PO HSPRN PRN (Reason: sleep)
Referrals:
Silvestre Kay MD [Family Provider, Family Practice]
Activity Restrictions/Additional Instructions:
You were seen in the emergency department for shortness of breath and tremulousness
You were found to have reassuring vital signs, laboratory analysis, chest x-ray imaging. We recommend close interval follow-up with your doctors
Return to the emergency department for any worsening of your symptoms, or any development of chest pain, difficulty breathing, abdominal pain with persistent vomiting and inability to tolerate food or liquid by mouth (concern for dehydration),
weakness, headache or confusion, fever greater than 100.4, or any additional symptoms that are concerning to you.
Thank you for choosing [facility].
Interventions
Interventions:
*General Assessment Last Done: 06/20/25 14:18
*Neglect/Abuse Screening Last Done: 06/20/25 12:18
*ED COVID-19 Vaccine History Last Done: 06/20/25 14:18
*ED Influenza Vaccine History Last Done: 06/20/25 14:18
[facility] Risk Assessment Tool Last Done: 06/20/25 14:15
*Risk Screen - Suicide (C-SSRS) Last Done: 06/20/25 12:18
*Nursing Disposition Last Done: 06/20/25 17:22
ED- Cardiac Assessment Last Done: 06/20/25 14:16
ED- Pulmonary Assessment Last Done: 06/20/25 14:16
Discharge Date and Time
Discharge Date/Time: 06/20/25 17:28
Print Language: [id number]
== END 2025-06-20 17:28 | disposition home or self-care (01) ==
LOC: EMR 12:13
PROVIDERS: Emergency Medicine; EMERGENCY PHYSICIAN Student in an Organized Health Care Education/Training Program; FAMILY PHYSICIAN Family Medicine
DX: R06.00 Dyspnea, unspecified (principal); R25.1 Tremor, unspecified; E78.00 Pure hypercholesterolemia, unspecified; J45.909 Unspecified asthma, uncomplicated; F41.9 Anxiety disorder, unspecified
CPT/HCPCS: 99285; 71046; 80053; 84484; 85025; 93005